=== PATIENT | male | born 1945 | race Caucasian/White ===

== ENCOUNTER 2022-10-04 13:55 | Inpatient (IN) | payer OTHER, SELFPAY ==
[2022-10-04] VITALS (43 sets, daily range): BP systolic 87–175; BP diastolic 52–103; PULSE 82–192; RESP 12–38; TEMP 36.1–38; O2SAT 91–98; BMI 22.8
--- NOTE | 2022-10-04 13:58 | DI.RAD.S_ITS ---
PROCEDURE: XR CHEST 1V INDICATIONS: eval for PNA TECHNIQUE: One view of the chest was acquired. COMPARISON: None. FINDINGS: Surgical changes and devices: None. Lungs and pleura: Right lower lobe infiltrate consistent with pneumonia. No pneumothorax or pleural effusion. Mediastinum: Mediastinal contours appear normal. Heart size is normal. Bones and chest wall: No suspicious bony lesions. Overlying soft tissues appear unremarkable. IMPRESSION: Right lower lobe infiltrate consistent with pneumonia. Dictated by: Dariel Guaman M.D. on 10/04/2022 at 13:26 Approved by: Dariel Guaman M.D. on 10/04/2022 at 13:27
--- NOTE | 2022-10-04 13:59 | ED_ITS ---
HPI - General Adult General Chief complaint: Upper Respiratory Symptoms Stated complaint: diff breathing Time Seen by Provider: 10/04/22 13:56 Source: patient, family () and EMS Mode of arrival: EMS Limitations: no limitations History of Present Illness HPI narrative: Patient is a 77-year-old male. History of COPD. Not on home oxygen. Brought in by EMS for worsening shortness of breath and cough over the past week. Patient did receive a DuoNeb prior to arrival by EMS which he states did help his symptoms quite a bit. He states he has had a productive cough. No chest pain. No shortness of breath. No lower extremity swelling. No nausea or vomiting. Has had subjective fevers. When his symptoms worsened this morning EMS was called. They found his oxygen saturations in the high 70s. Patient is not altered. Related Data Home Medications Medication Instructions Recorded Confirmed amlodipine 5 mg tablet 5 mg PO BID 10/04/22 10/04/22 brimonidine 0.2 % eye drops 1 drp ophthalmic (eye) BID 10/04/22 10/04/22 clopidogrel 75 mg tablet 75 mg PO DAILY 10/04/22 10/04/22 dorzolamide 2 % eye drops 1 drp ophthalmic (eye) BID 10/04/22 10/04/22 ipratropium 20 mcg-albuterol 100 1 puff inhalation TID 10/04/22 10/04/22 mcg/actuation mist for inhalation (Combivent Respimat) latanoprost 0.005 % eye drops 1 drp ophthalmic (eye) QPM 10/04/22 10/04/22 losartan 50 mg tablet 50 mg PO BID 10/04/22 10/04/22 Allergies Allergy/AdvReac Type Severity Reaction Status Date / Time tetracycline Allergy Severe Blister Verified 10/04/22 14:05 Review of Systems Constitutional Constitutional: Reports system reviewed and no additional complaints, except as documented Cardiovascular Cardiovascular: Reports system reviewed and no additional complaints, except as documented Respiratory Respiratory: Reports system reviewed and no additional complaints, except as documented Gastrointestinal Gastrointestinal: Reports system reviewed and no additional complaints, except as documented Musculoskeletal Musculoskeletal: Reports system reviewed and no additional complaints, except as documented Integumentary/Breasts Skin/Breast: Reports system reviewed and no additional complaints, except as documented Neurologic Neurologic: Reports system reviewed and no additional complaints, except as documented Hematologic/Lymphatic On Anticoagulants: No Patient History Medical History COPD (chronic obstructive pulmonary disease) Social History Smoking Status: Former smoker Exam Initial Vital Signs Initial Vital Signs: Vital Signs Blood Pressure 120/72 10/04/22 13:56 Const General: cooperative, acute distress and ill appearing HENMT Head: normal to inspection Resp Effort & Inspection: labored, respiratory distress and tachypneic Auscultation: rales, rhonchi and wheezes Cardio Rate: tachycardic Rhythm: abnormal rhythm GI Inspection: normal to inspection Skin General: no rashes or lesions noted Neuro General: patient alert, patient awake, patient oriented x3 and moves all extremities Extrem General: No edema Psych Appearance: grossly normal Scores GCS [place] coma scale eye opening: Spontaneous [place] coma scale verbal response: Orientated [place] coma scale motor response: Obey commands [place] coma scale total score: 15 Course Orders Ordered: ED Orders 10/04/22 13:58 XR chest 1V Stat EKG-12 Lead Stat RT Consult Eval and Treat Now 10/04/22 14:00 Complete Blood Count AUTO DIFF Stat Comprehensive Metabolic Panel Stat Lactate (Lactic Acid) Stat Lipase Stat Magnesium Stat NT-proBNP (BNP-Adult 18+) Stat Procalcitonin Stat Respiratory Panel (Film Array) Stat Troponin & CK Cardiac Panel Stat 10/04/22 14:03 Blood Culture Stat DILTIAZEM (Diltiazem 125 Mg/125 Ml-D5w) 125 mg in 125 mls @ 5 mls/hr IV TITRATE GABI; Protocol Last Titration: 10/04/22 15:51 Dose: 0 mg/hr, 0 mls/hr Documented By: Admin: 10/04/22 14:29 Dose: 5 mg/hr, 5 mls/hr Documented By: EMILIA(2) Discontinued Medications Albuterol/Ipratropium (Albuterol/Ipratropium 3 Ml Ampul) 3 ml INH NOW ONE Stop: 10/04/22 13:57 Last Admin: 10/04/22 14:09 Dose: 3 ml Documented By: CRISTINA Diltiazem HCl (Diltiazem 5 Mg/Ml Sdv) 10 mg IV NOW ONE Stop: 10/04/22 14:09 Last Admin: 10/04/22 14:14 Dose: 10 mg Documented By: RLS(2) Hydromorphone HCl (Hydromorphone 0.5 Mg Inj) 1 mg IV NOW ONE Stop: 10/04/22 15:50 Last Admin: 10/04/22 15:55 Dose: Not Given Documented By: RLS(2) Levofloxacin (Levaquin) 750 mg in 150 mls @ 100 mls/hr IV NOW ONE Stop: 10/04/22 15:48 Last Infusion: 10/04/22 16:03 Dose: 0 mls/hr Documented By: Admin: 10/04/22 14:28 Dose: 100 mls/hr Documented By: RLS(2) Methylprednisolone (Methylprednisolone 125 Mg/2 Ml Vial) 125 mg IV NOW ONE Stop: 10/04/22 13:57 Last Admin: 10/04/22 14:14 Dose: 125 mg Documented By: RLS(2) Vital Signs Vital signs: Vital Signs - 8 hr 10/04/22 14:05 10/04/22 14:12 10/04/22 14:14 Temperature 100.4 F H Pulse Rate 185 H 184 H 192 H Respiratory Rate 37 H 32 H Blood Pressure 120/72 Pulse Oximetry 91 92 Oxygen Delivery Method Nasal Cannula Nasal Cannula Oxygen Flow Rate 2 2 Fraction of Inspired Oxygen 28 10/04/22 13:56 10/04/22 13:57 10/04/22 14:00 Temperature Pulse Rate 185 H 186 H Respiratory Rate 35 H 38 H Blood Pressure 120/72 Pulse Oximetry 92 91 Oxygen Delivery Method Oxygen Flow Rate Fraction of Inspired Oxygen 10/04/22 14:01 10/04/22 14:01 10/04/22 14:20 Temperature Pulse Rate 186 H Respiratory Rate 36 H Blood Pressure 175/103 H 101/58 L Pulse Oximetry 92 Oxygen Delivery Method Oxygen Flow Rate Fraction of Inspired Oxygen 10/04/22 14:20 10/04/22 14:30 10/04/22 14:30 Temperature Pulse Rate 180 H 168 H Respiratory Rate 35 H 36 H Blood Pressure 96/65 Pulse Oximetry 91 91 Oxygen Delivery Method Oxygen Flow Rate Fraction of Inspired Oxygen 10/04/22 14:40 10/04/22 14:40 10/04/22 14:43 Temperature Pulse Rate 164 H 174 H Respiratory Rate 32 H 31 H Blood Pressure 91/57 L Pulse Oximetry 92 92 Oxygen Delivery Method Nasal Cannula Oxygen Flow Rate 2 Fraction of Inspired Oxygen 10/04/22 14:43 10/04/22 14:45 10/04/22 14:45 Temperature Pulse Rate 106 H Respiratory Rate 30 H Blood Pressure 87/58 L 96/71 Pulse Oximetry 95 Oxygen Delivery Method Nasal Cannula Oxygen Flow Rate 2 Fraction of Inspired Oxygen 10/04/22 14:50 10/04/22 14:50 10/04/22 14:57 Temperature Pulse Rate 102 H 104 H Respiratory Rate 27 H 28 H Blood Pressure 87/57 L Pulse Oximetry 96 96 Oxygen Delivery Method Oxygen Flow Rate Fraction of Inspired Oxygen 10/04/22 14:57 10/04/22 15:00 10/04/22 15:00 Temperature Pulse Rate 103 H Respiratory Rate 24 Blood Pressure 91/57 L 93/60 Pulse Oximetry 95 Oxygen Delivery Method Oxygen Flow Rate Fraction of Inspired Oxygen 10/04/22 15:10 10/04/22 15:10 10/04/22 15:20 Temperature Pulse Rate 100 H Respiratory Rate 20 Blood Pressure 99/56 L 89/52 L Pulse Oximetry 97 Oxygen Delivery Method Oxygen Flow Rate Fraction of Inspired Oxygen 10/04/22 15:20 10/04/22 15:26 10/04/22 15:26 Temperature Pulse Rate 98 H 97 H Respiratory Rate 20 25 H Blood Pressure 92/55 L Pulse Oximetry 96 95 Oxygen Delivery Method Oxygen Flow Rate Fraction of Inspired Oxygen 10/04/22 15:30 10/04/22 15:30 10/04/22 15:40 Temperature Pulse Rate 99 H Respiratory Rate 25 H Blood Pressure 103/62 94/60 Pulse Oximetry 95 Oxygen Delivery Method Oxygen Flow Rate Fraction of Inspired Oxygen 10/04/22 15:40 Temperature Pulse Rate 98 H Respiratory Rate 19 Blood Pressure Pulse Oximetry 95 Oxygen Delivery Method Oxygen Flow Rate Fraction of Inspired Oxygen Medical Decision Making Medical Records Medical records reviewed: Yes I reviewed the patient's medical records. Lab Data Lab results reviewed: Yes I reviewed the patient's lab results. 10/04/22 14:00 10/04/22 14:00 Labs: Lab Results 10/04/22 10/04/22 10/04/22 Range/Units 14:00 14:00 14:00 WBC 16.4 H (4.5-11.0) X10^3/uL RBC 4.53 (4.5-5.9) X10^6/uL Hgb 13.7 (13.5-17.5) g/dL Hct 41.3 (41-53) % MCV 91.1 (80-100) fL MCH 30.3 (26-34) PG MCHC 33.3 (30-36) % RDW 13.4 (11.6-14.8) % Plt Count 223 (150-400) X10^3/uL Neut % (Auto) 88.3 H (50-75) % Lymph % (Auto) 6.9 L (25-40) % [place] % (Auto) 3.9 (3-14) % Eos % (Auto) 0.0 L (2-4) % Baso % (Auto) 0.9 (0-2) % Neut # (Auto) 05891 H (0941-8493) /uL Lymph # (Auto) 1100 (4859-2840) /uL [place] # (Auto) 600 (0-900) /uL Eos # (Auto) 0 (0-450) /uL Baso # (Auto) 200 H (0-100) /uL Sodium 137 (137-145) mmol/L Potassium 3.5 (3.4-5.1) mmol/L Chloride 103 (98-107) mmol/L Carbon Dioxide 19 L (22-32) mmol/L BUN 22 H (9-20) mg/dL Creatinine 1.25 (0.66-1.25) mg/dL Estimated GFR 59 L (>60) mL/min BUN/Creatinine Ratio 17.6 (6-22) Glucose 108 (80-110) mg/dL Lactate 2.3 H (0.7-2.1) mmol/L Calcium 8.7 (8.4-10.2) mg/dL Magnesium 1.9 (1.6-2.3) mg/dL Total Bilirubin 1.9 H (0.2-1.3) mg/dL AST 73 H (17-59) IU/L ALT 56 H (<50) IU/L Alkaline Phosphatase 116 (38-126) U/L Total Creatine Kinase (55-170) U/L CK-MB (CK-2) (<2.37) ng/mL CK-MB (CK-2) Rel Index (1.5-5.0) % Troponin I (0.01-0.034) ng/mL NT-Pro-B Natriuret Pep 4730 H (<450) pg/mL Total Protein 7.2 (6.3-8.2) g/dL Albumin 3.5 (3.5-5.0) g/dL Globulin 3.7 (1.7-4.1) g/dL Albumin/Globulin Ratio 0.9 L (1.0-2.8) Lipase 19 L (23-300) U/L Procalcitonin 6.41 H (<0.5) ng/mL Chlamy pneumoniae PCR (Not Detect) Adenovirus (PCR) (Not Detect) B. pertussis DNA (PCR) (Not Detecte) B.parapertussis DNA PCR (Not Detecte) Coronavirus OC43 (PCR) (Not Detect) Coronavirus HKU1 (PCR) (Not Detect) Coronavirus 229E (PCR) (Not Detect) SARS-CoV-2 (PCR) (Not Detecte) Coronavirus NL63 (PCR) (Not Detect) Human Metapneumovir PCR (Not Detect) Influenza Type A (PCR) (Not Detect) Influenza Type B (PCR) (Not Detect) M. pneumoniae (PCR) (Not Detect) Parainfluenza 1 (PCR) (Not Detect) Parainfluenza 2 (PCR) (Not Detect) Parainfluenza 3 (PCR) (Not Detect) Parainfluenza 4 (PCR) (Not Detect) RSV (PCR) (Not Detect) Entero/Rhino (PCR) (Not Detect) 10/04/22 10/04/22 Range/Units 14:00 14:00 WBC (4.5-11.0) X10^3/uL RBC (4.5-5.9) X10^6/uL Hgb (13.5-17.5) g/dL Hct (41-53) % MCV (80-100) fL MCH (26-34) PG MCHC (30-36) % RDW (11.6-14.8) % Plt Count (150-400) X10^3/uL Neut % (Auto) (50-75) % Lymph % (Auto) (25-40) % [place] % (Auto) (3-14) % Eos % (Auto) (2-4) % Baso % (Auto) (0-2) % Neut # (Auto) (4309-7909) /uL Lymph # (Auto) (6174-2928) /uL [place] # (Auto) (0-900) /uL Eos # (Auto) (0-450) /uL Baso # (Auto) (0-100) /uL Sodium (137-145) mmol/L Potassium (3.4-5.1) mmol/L Chloride (98-107) mmol/L Carbon Dioxide (22-32) mmol/L BUN (9-20) mg/dL Creatinine (0.66-1.25) mg/dL Estimated GFR (>60) mL/min BUN/Creatinine Ratio (6-22) Glucose (80-110) mg/dL Lactate (0.7-2.1) mmol/L Calcium (8.4-10.2) mg/dL Magnesium (1.6-2.3) mg/dL Total Bilirubin (0.2-1.3) mg/dL AST (17-59) IU/L ALT (<50) IU/L Alkaline Phosphatase (38-126) U/L Total Creatine Kinase 200 H (55-170) U/L CK-MB (CK-2) 2.95 H (<2.37) ng/mL CK-MB (CK-2) Rel Index 1.5 (1.5-5.0) % Troponin I 0.057 H (0.01-0.034) ng/mL NT-Pro-B Natriuret Pep (<450) pg/mL Total Protein (6.3-8.2) g/dL Albumin (3.5-5.0) g/dL Globulin (1.7-4.1) g/dL Albumin/Globulin Ratio (1.0-2.8) Lipase (23-300) U/L Procalcitonin (<0.5) ng/mL Chlamy pneumoniae PCR Not detected (Not Detect) Adenovirus (PCR) Not detected (Not Detect) B. pertussis DNA (PCR) Not detected (Not Detecte) B.parapertussis DNA PCR Not detected (Not Detecte) Coronavirus OC43 (PCR) Not detected (Not Detect) Coronavirus HKU1 (PCR) Not detected (Not Detect) Coronavirus 229E (PCR) Not detected (Not Detect) SARS-CoV-2 (PCR) Not detected (Not Detecte) Coronavirus NL63 (PCR) Not detected (Not Detect) Human Metapneumovir PCR Detected H (Not Detect) Influenza Type A (PCR) Not detected (Not Detect) Influenza Type B (PCR) Not detected (Not Detect) M. pneumoniae (PCR) Not detected (Not Detect) Parainfluenza 1 (PCR) Not detected (Not Detect) Parainfluenza 2 (PCR) Not detected (Not Detect) Parainfluenza 3 (PCR) Not detected (Not Detect) Parainfluenza 4 (PCR) Not detected (Not Detect) RSV (PCR) Not detected (Not Detect) Entero/Rhino (PCR) Not detected (Not Detect) Imaging Data Chest x-ray: Radiologist's Impression: PROCEDURE:? XR CHEST 1V ? INDICATIONS:? eval for PNA ? TECHNIQUE:? One view of the chest was acquired.? ? COMPARISON:? None. ? FINDINGS:? ? Surgical changes and devices:? None.? ? Lungs and pleura:? Right lower lobe infiltrate consistent with pneumonia.? No pneumothorax or pleural effusion. ? Mediastinum:? Mediastinal contours appear normal.? Heart size is normal.? ? Bones and chest wall:? No suspicious bony lesions.? Overlying soft tissues appear unremarkable.? ? IMPRESSION:? Right lower lobe infiltrate consistent with pneumonia. ECG Data Interpretation: Atrial fibrillation Ventricular rate 178 Normal axis Normal QRS Nonspecific ST T wave changes Sinus rhythm Ventricular rate 97 Normal axis Normal QRS Normal QTC No ST T wave changes MDM Narrative Medical decision making narrative: Patient has had upper respiratory tract infection like symptoms for the past week with a history of COPD. Was hypoxic by EMS. Improved somewhat with a DuoNeb however still having diffuse wheezing and respiratory distress upon arrival. He received a 2nd DuoNeb. Patient was also tachycardic and irregular. It was AFib when the EKG. He is no history of AFib. Given his history of respiratory issues he was given Cardizem which did improve his heart rate somewhat. He was then started on a Cardizem drip which converted him back to sinus rhythm. Afterwards he stated that he did feel much better. His labs are consistent with an infection. He has a right lower lobe infiltrate which was concerning for an infection. He does have human metapneumovirus however his x- ray does not necessarily correlate with this. He was given Levaquin for treatment of pneumonia. Patient's blood pressure was in the upper 80s however he stated that he at baseline would run in the low 90s to mid 90s systolic. Patient is mentating normal. Discussed the case with Dr. Mora with Internal Medicine who will admit the patient for further evaluation treatment. Discussed need for admission with the patient he expressed understanding and agreement as well. Gentle hydration given his presenting symptoms however given his re spiratory status did not want to fluid overload. Critical Care Time Critical Care Time Critical Care Time: Yes Total Critical Care Time: 40 Attestation: The high probability of a clinically significant, sudden or life threatening deterioration of the [cardiovascular, respiratory] system(s) required my full and direct attention, intervention and personal management. The aggregate critical care time was [40] minutes. This time is in addition to time spent performing reported procedures but includes the following: [x] Data Review and interpretation x[] Patient assessment and monitoring of vital signs [x] Documentation [x] Medication orders and management Discharge Plan Departure Patient Disposition: Admitted As Inpatient Clinical Impression: Pneumonia, COPD (chronic obstructive pulmonary disease), Atrial fibrillation with RVR, Respiratory distress, Hypoxia Admit Date/Time: 10/04/22 15:47 Admit Provider: Lucero Mora
[2022-10-04] MEDS: ALBUTEROL/IPRATROPIUM 3 ML AMPUL INH (14:09)
[2022-10-04] MEDS: dilTIAZem 5 MG/ML SDV 10 MG IV (14:14)
[2022-10-04] MEDS: methylPREDNISolone 125 MG/2 ML VIAL IV (14:14)
[2022-10-04 14:22] LABS: Add Manual Diff / Slide Review NO; Basophils Absolute Auto 200 /uL (0-100); Basophils Percent Auto 0.9 % (0-2); Eosinophils Absolute Auto 0 /uL (0-450); Hematocrit 41.3 % (41-53); Hemoglobin 13.7 g/dL (13.5-17.5); Lymphocytes Absolute Auto 1100 /uL (1100-4500); Lymphocytes Percent Auto 6.9 % (25-40); Mean Corpuscular HGB Conc 33.3 % (30-36); Mean Corpuscular Hemoglobin 30.3 PG (26-34); Mean Corpuscular Volume 91.1 fL (80-100); Monocytes Absolute Auto 600 /uL (0-900); Monocytes Percent Auto 3.9 % (3-14); Neutrophils Absolute Auto 14500 /uL (1500-7000); Neutrophils Percent Auto 88.3 % (50-75); Platelet Count 223 X10^3/uL (150-400); Red Blood Cell Count 4.53 X10^6/uL (4.5-5.9); Red Cell Distribution Width 13.4 % (11.6-14.8); White Blood Cell Count 16.4 X10^3/uL (4.5-11.0)
[2022-10-04] MEDS: levoFLOXacin 750 MG/150 ML PIGGYBACK 100 MG IV (14:28)
[2022-10-04 14:29] LABS: Alanine Aminotransferase 56 IU/L (<50); Albumin 3.5 g/dL (3.5-5.0); Albumin Globulin Ratio 0.9 (1.0-2.8); Alkaline Phosphatase 116 U/L (38-126); Aspartate Aminotransferase 73 IU/L (17-59); BUN Creatinine Ratio 17.6 (6-22); Bilirubin Total 1.9 mg/dL (0.2-1.3); Blood Urea Nitrogen 22 mg/dL (9-20); Calcium 8.7 mg/dL (8.4-10.2); Carbon Dioxide 19 mmol/L (22-32); Chloride 103 mmol/L (98-107); Creatine Kinase 200 U/L (55-170); Estimated Glomerular Filt Rate 59 mL/min (>60); Globulin 3.7 g/dL (1.7-4.1); Glucose 108 mg/dL (80-110); HEMOLYSIS < 15 (0-50); Lipase 19 U/L (23-300); Magnesium 1.9 mg/dL (1.6-2.3); Potassium 3.5 mmol/L (3.4-5.1); Sodium 137 mmol/L (137-145); Total Protein 7.2 g/dL (6.3-8.2)
[2022-10-04] MEDS: DILTIAZEM 125 MG/125 ML PIGGYBACK IV (14:29)
[2022-10-04 14:30] LABS: Lactate (Lactic Acid) 2.3 mmol/L (0.7-2.1)
[2022-10-04 14:38] LABS: NT-proBNP (BNP-Adult 18+) 4730 pg/mL (<450)
[2022-10-04 14:41] LABS: Troponin I 0.057 ng/mL (0.01-0.034)
[2022-10-04 14:45] LABS: CKMB % Relative Index 1.5 % (1.5-5.0); Creatine Kinase MB 2.95 ng/mL (<2.37); Procalcitonin 6.41 ng/mL (<0.5)
--- NOTE | 2022-10-04 14:59 | PC.NURSE ---
Dr. Scott aware of conversion to sinus tachycardia. will wait a few minutes and get a repeat ekg
[2022-10-04 15:02] LABS: Adenovirus Not Detected (Not Detect); B. parapertussis Not Detected (Not Detecte); Bordetella pertussis Not Detected (Not Detecte); Chlamydophila pneumoniae Not Detected (Not Detect); Coronavirus 229E Not Detected (Not Detect); Coronavirus HKU1 Not Detected (Not Detect); Coronavirus NL 63 Not Detected (Not Detect); Coronavirus OC43 Not Detected (Not Detect); Human Metapneumovirus Detected (Not Detect); Human Rhinovirus/Enterovirus Not Detected (Not Detect); Influenza A Not Detected (Not Detect); Influenza B Not Detected (Not Detect); Mycoplasma pneumoniae Not Detected (Not Detect); Parainfluenza Virus 1 Not Detected (Not Detect); Parainfluenza Virus 2 Not Detected (Not Detect); Parainfluenza Virus 3 Not Detected (Not Detect); Parainfluenza Virus 4 Not Detected (Not Detect); Respiratory Syncytial Virus Not Detected (Not Detect); SARS- CoV-2 Not Detected (Not Detecte)
[2022-10-04 16:09] LABS: Reflexed Lactate in 2 Hours Y
[2022-10-04 16:41] LABS: Lactate 2HR (Lactic Acid Rflx) 1.8 mmol/L (0.7-2.1)
--- NOTE | 2022-10-04 18:00 | PM.HP.1 ---
History of Present Illness History of Present Illness Chief complaint: diff breathing Narrative: 77-year-old male with COPD, coronary artery disease status post drug-eluting stents, obstructive sleep apnea, CKD stage 3, hypertension, hyperlipidemia and known stable infrarenal abdominal aortic aneurysm presented to the emergency today with worsening shortness of breath and cough over the prior week. Initial O2 sats were noted to be in the 70s via EMS. Received a nebulizer in the ambulance on route to the hospital. He received an additional nebulizer treatment after arrival in the ER. Initial vital signs revealed a temp of 100.4?, heart rate in the 180s, respiratory rate in the 30s, BP 120/72, O2 sats 91% on 2 liters/minute. He received diltiazem 10 mg IV and subsequently was placed on a diltiazem infusion. Shortly thereafter though he converted back to a sinus rhythm. Labs revealed a white blood cell count of 16.4, hemoglobin 13.7, hematocrit 41.3, platelets 223. Chemistry panel revealed a sodium of 137, potassium 3.5, chloride 103, bicarb 19, BUN 22, creatinine 1.25, Cl 108. Lactate was initially 2.3 but in follow-up normalized at 1.8. Bilirubin was elevated at 1.9, AST 73, ALT 56, CK 200, CK-MB 2.95, troponin 0.057, BNP 4730. Procalcitonin was 6.41. Respiratory viral panel was done and human metapneumovirus was detected. Chest x-ray revealed right lower lobe infiltrate consistent with pneumonia. Patient received Levaquin 750 mg IV, Solu-Medrol 125 mg IV, as well as a single dose of Dilaudid 1 mg IV. After he converted back to a sinus rhythm, he was noted have a heart rate of 102-106, soft blood pressures at 87/57 to 96/71. While in the emergency department, blood pressures have gradually improved up to the low 100 systolic. Patient tells me he became ill approximately 1 week ago. Notes he was having cough productive of dark ?black? sputum. He had been feeling worse over the past couple of days. He states he delayed coming to the emergency department as his was worried about the cost. He states today he ?knew he was in trouble? and called EMS. He states he last ate food approximately 5 days ago. He notes he developed nausea but no vomiting. He would also had problems every time he ate he had diarrhea. He states his oral intake has been reduced and his urine output has been reduced as well. He states at baseline he does not use oxygen. He typically is able to get around as he needs to with some shortness of breath but it is not terribly limiting for him. He notes his longer drives and he drives her everywhere she needs to go and he is able to perform his IADLs. He states he was unaware he was febrile until coming to the emergency department. He also states he was unaware of having a fast heart rhythm. He states he simply knew he was feeling very poorly. He denies any chest pain. Currently he continues to have some shortness of breath. Patient History Medical History COPD (chronic obstructive pulmonary disease) Comment: Past medical history: Hypertension Hyperlipidemia Coronary artery disease status post drug-eluting stent to the RCA in 2012 with in stent restenosis, and NSTEMI resulting in drug-eluting stent to the mid RCA, on dual antiplatelet therapy Cardiac murmur echocardiogram reveals LVEF of 60%, diastolic dysfunction noted, mildly dilated left atrium Extensive exposure to agent orange while in [place] COPD (bilateral severe emphysema seen on imaging) History of tobacco dependence-Greater than 50 pack year smoking history, quit in 1999 obstructive sleep apnea Anemia GERD Depression Claustrophobia Infrarenal abdominal aortic aneurysm measuring 4.5 x 4.[address] most recent CT in 2021 CKD stage 3 with baseline creatinine of 1.3, GFR of around 53 Left renal angiomyolipoma Hepatic steatosis seen on previous imaging December 2021 Glaucoma Family & Social History Social History: Family history: Patient reports his father had significant coronary disease but he attributes that to his father's heavy drinking Safety & Behavioral: Feels Safe in Current Yes Environment Tobacco & Substance use: Smoking Status Former smoker Substance Use Type does not use Meds Home Medications and Allergies Home Medications Medication Instructions Recorded Confirmed Type amlodipine 5 mg tablet 5 mg PO BID 10/04/22 10/04/22 History brimonidine 0.2 % eye drops 1 drp ophthalmic (eye) BID 10/04/22 10/04/22 History clopidogrel 75 mg tablet 75 mg PO DAILY 10/04/22 10/04/22 History dorzolamide 2 % eye drops 1 drp ophthalmic (eye) BID 10/04/22 10/04/22 History ipratropium 20 mcg-albuterol 100 1 puff inhalation TID 10/04/22 10/04/22 History mcg/actuation mist for inhalation (Combivent Respimat) latanoprost 0.005 % eye drops 1 drp ophthalmic (eye) QPM 10/04/22 10/04/22 History losartan 50 mg tablet 50 mg PO BID 10/04/22 10/04/22 History Allergies Allergy/AdvReac Type Severity Reaction Status Date / Time tetracycline Allergy Severe Blister Verified 10/04/22 14:05 Review of Systems Review of Systems Narrative: All other systems were reviewed negative Exam Vital Signs (past 8 hours): - 10/04/22 14:05 10/04/22 14:12 10/04/22 14:14 Temperature 100.4 F H Pulse Rate 185 H 184 H 192 H Respiratory Rate 37 H 32 H Blood Pressure 120/72 Pulse Oximetry 91 92 Oxygen Delivery Method Nasal Cannula Nasal Cannula Oxygen Flow Rate 2 2 Fraction of Inspired Oxygen 28 10/04/22 13:56 10/04/22 13:57 10/04/22 14:00 Temperature Pulse Rate 185 H 186 H Respiratory Rate 35 H 38 H Blood Pressure 120/72 Pulse Oximetry 92 91 Oxygen Delivery Method Oxygen Flow Rate Fraction of Inspired Oxygen 10/04/22 14:01 10/04/22 14:01 10/04/22 14:20 Temperature Pulse Rate 186 H Respiratory Rate 36 H Blood Pressure 175/103 H 101/58 L Pulse Oximetry 92 Oxygen Delivery Method Oxygen Flow Rate Fraction of Inspired Oxygen 10/04/22 14:20 10/04/22 14:30 10/04/22 14:30 Temperature Pulse Rate 180 H 168 H Respiratory Rate 35 H 36 H Blood Pressure 96/65 Pulse Oximetry 91 91 Oxygen Delivery Method Oxygen Flow Rate Fraction of Inspired Oxygen 10/04/22 14:40 10/04/22 14:40 10/04/22 14:43 Temperature Pulse Rate 164 H 174 H Respiratory Rate 32 H 31 H Blood Pressure 91/57 L Pulse Oximetry 92 92 Oxygen Delivery Method Nasal Cannula Oxygen Flow Rate 2 Fraction of Inspired Oxygen 10/04/22 14:43 10/04/22 14:45 10/04/22 14:45 Temperature Pulse Rate 106 H Respiratory Rate 30 H Blood Pressure 87/58 L 96/71 Pulse Oximetry 95 Oxygen Delivery Method Nasal Cannula Oxygen Flow Rate 2 Fraction of Inspired Oxygen 10/04/22 14:50 10/04/22 14:50 10/04/22 14:57 Temperature Pulse Rate 102 H 104 H Respiratory Rate 27 H 28 H Blood Pressure 87/57 L Pulse Oximetry 96 96 Oxygen Delivery Method Oxygen Flow Rate Fraction of Inspired Oxygen 10/04/22 14:57 10/04/22 15:00 10/04/22 15:00 Temperature Pulse Rate 103 H Respiratory Rate 24 Blood Pressure 91/57 L 93/60 Pulse Oximetry 95 Oxygen Delivery Method Oxygen Flow Rate Fraction of Inspired Oxygen 10/04/22 15:10 10/04/22 15:10 10/04/22 15:20 Temperature Pulse Rate 100 H Respiratory Rate 20 Blood Pressure 99/56 L 89/52 L Pulse Oximetry 97 Oxygen Delivery Method Oxygen Flow Rate Fraction of Inspired Oxygen 10/04/22 15:20 10/04/22 15:26 10/04/22 15:26 Temperature Pulse Rate 98 H 97 H Respiratory Rate 20 25 H Blood Pressure 92/55 L Pulse Oximetry 96 95 Oxygen Delivery Method Oxygen Flow Rate Fraction of Inspired Oxygen 10/04/22 15:30 10/04/22 15:30 10/04/22 15:40 Temperature Pulse Rate 99 H Respiratory Rate 25 H Blood Pressure 103/62 94/60 Pulse Oximetry 95 Oxygen Delivery Method Oxygen Flow Rate Fraction of Inspired Oxygen 10/04/22 15:40 10/04/22 15:50 10/04/22 15:50 Temperature Pulse Rate 98 H 97 H Respiratory Rate 19 22 Blood Pressure 104/67 Pulse Oximetry 95 96 Oxygen Delivery Method Oxygen Flow Rate Fraction of Inspired Oxygen 10/04/22 16:00 10/04/22 16:00 10/04/22 16:10 Temperature Pulse Rate 99 H Respiratory Rate 19 Blood Pressure 98/64 102/68 Pulse Oximetry 95 Oxygen Delivery Method Oxygen Flow Rate Fraction of Inspired Oxygen 10/04/22 16:10 10/04/22 16:20 10/04/22 16:20 Temperature Pulse Rate 97 H 98 H Respiratory Rate 21 24 Blood Pressure 107/67 Pulse Oximetry 95 95 Oxygen Delivery Method Oxygen Flow Rate Fraction of Inspired Oxygen 10/04/22 16:30 10/04/22 16:30 10/04/22 16:40 Temperature Pulse Rate 97 H Respiratory Rate 20 Blood Pressure 112/69 105/65 Pulse Oximetry 95 Oxygen Delivery Method High Flow Nasal Cannula Oxygen Flow Rate 2 Fraction of Inspired Oxygen 10/04/22 16:40 10/04/22 16:50 10/04/22 16:50 Temperature Pulse Rate 96 H 97 H Respiratory Rate 22 23 Blood Pressure 103/66 Pulse Oximetry 95 95 Oxygen Delivery Method Nasal Cannula Oxygen Flow Rate Fraction of Inspired Oxygen 10/04/22 17:00 10/04/22 17:01 10/04/22 17:01 Temperature Pulse Rate 94 H 94 H Respiratory Rate 18 17 Blood Pressure 112/66 Pulse Oximetry 95 94 Oxygen Delivery Method Oxygen Flow Rate Fraction of Inspired Oxygen 10/04/22 17:55 Temperature Pulse Rate Respiratory Rate Blood Pressure Pulse Oximetry 98 Oxygen Delivery Method Nasal Cannula Oxygen Flow Rate 2 Fraction of Inspired Oxygen Fraction of Inspired Oxygen 28 SaO2/FiO2 Ratio 328 Oxygen Delivery Method Nasal Cannula Oxygen Flow Rate 2 Narrative Exam Narrative: GEN: Elderly male, quite dyspneic at rest, conversationally dyspneic, Alert and oriented x3, occasional wet sounding cough HEENT: Normocephalic, face symmetric, pupils equal round reactive to light, extraocular movements intact, sclerae anicteric, conjunctiva clear, nares patent, oropharynx reveals an intact soft and hard palate with moist mucous membranes, dentition is fair NECK: Supple, no lymphadenopathy, thyroid without enlargement or nodularity, carotids no bruits CHEST: Tachypneic, mild supraclavicular retractions, Respiratory excursions symmetric, diffuse rhonchi bilaterally, no wheezes heard, diffusely diminished CV: Mildly tachycardic with regular rhythm, no murmurs, rubs, gallops, PMI nondisplaced ABD: Soft, nontender, nondistended, bowel sounds present in all 4 quadrants, no organomegaly or masses appreciated EXTR: Warm, well perfused, no clubbing/cyanosis/edema SKIN: Warm and dry, without rash NEURO: Alert and oriented x3, grossly intact PSYCH: Mood and affect is within normal limits, judgment and insight are appropriate Objective Labs 10/04/22 14:00 10/04/22 14:00 Labs: Laboratory Results - last 24 hr 10/04/22 10/04/22 10/04/22 14:00 14:00 14:00 WBC 16.4 H RBC 4.53 Hgb 13.7 Hct 41.3 MCV 91.1 MCH 30.3 MCHC 33.3 RDW 13.4 Plt Count 223 Neut % (Auto) 88.3 H Lymph % (Auto) 6.9 L [place] % (Auto) 3.9 Eos % (Auto) 0.0 L Baso % (Auto) 0.9 Neut # (Auto) 14185 H Lymph # (Auto) 1100 [place] # (Auto) 600 Eos # (Auto) 0 Baso # (Auto) 200 H Sodium 137 Potassium 3.5 Chloride 103 Carbon Dioxide 19 L BUN 22 H Creatinine 1.25 Estimated GFR 59 L BUN/Creatinine Ratio 17.6 Glucose 108 Lactate 2.3 H Calcium 8.7 Magnesium 1.9 Total Bilirubin 1.9 H AST 73 H ALT 56 H Alkaline Phosphatase 116 Total Creatine Kinase CK-MB (CK-2) CK-MB (CK-2) Rel Index Troponin I NT-Pro-B Natriuret Pep 4730 H Total Protein 7.2 Albumin 3.5 Globulin 3.7 Albumin/Globulin Ratio 0.9 L Lipase 19 L Procalcitonin 6.41 H Chlamy pneumoniae PCR Adenovirus (PCR) B. pertussis DNA (PCR) B.parapertussis DNA PCR Coronavirus OC43 (PCR) Coronavirus HKU1 (PCR) Coronavirus 229E (PCR) SARS-CoV-2 (PCR) Coronavirus NL63 (PCR) Human Metapneumovir PCR Influenza Type A (PCR) Influenza Type B (PCR) M. pneumoniae (PCR) Parainfluenza 1 (PCR) Parainfluenza 2 (PCR) Parainfluenza 3 (PCR) Parainfluenza 4 (PCR) RSV (PCR) Entero/Rhino (PCR) 10/04/22 10/04/22 10/04/22 14:00 14:00 15:25 WBC RBC Hgb Hct MCV MCH MCHC RDW Plt Count Neut % (Auto) Lymph % (Auto) [place] % (Auto) Eos % (Auto) Baso % (Auto) Neut # (Auto) Lymph # (Auto) [place] # (Auto) Eos # (Auto) Baso # (Auto) Sodium Potassium Chloride Carbon Dioxide BUN Creatinine Estimated GFR BUN/Creatinine Ratio Glucose Lactate 1.8 Calcium Magnesium Total Bilirubin AST ALT Alkaline Phosphatase Total Creatine Kinase 200 H CK-MB (CK-2) 2.95 H CK-MB (CK-2) Rel Index 1.5 Troponin I 0.057 H NT-Pro-B Natriuret Pep Total Protein Albumin Globulin Albumin/Globulin Ratio Lipase Procalcitonin Chlamy pneumoniae PCR Not detected Adenovirus (PCR) Not detected B. pertussis DNA (PCR) Not detected B.parapertussis DNA PCR Not detected Coronavirus OC43 (PCR) Not detected Coronavirus HKU1 (PCR) Not detected Coronavirus 229E (PCR) Not detected SARS-CoV-2 (PCR) Not detected Coronavirus NL63 (PCR) Not detected Human Metapneumovir PCR Detected H Influenza Type A (PCR) Not detected Influenza Type B (PCR) Not detected M. pneumoniae (PCR) Not detected Parainfluenza 1 (PCR) Not detected Parainfluenza 2 (PCR) Not detected Parainfluenza 3 (PCR) Not detected Parainfluenza 4 (PCR) Not detected RSV (PCR) Not detected Entero/Rhino (PCR) Not detected Assessment & Plan Assessment & Plan narrative: 1. Acute hypoxic respiratory failure Patient presented with room air saturations in the 70s. He subsequently improved with nebulizer treatments and supplemental oxygen. He is now stable on 2 L of oxygen with saturations in the high 90s. Etiology is felt to be combination of pneumonia, known severe COPD and atrial fib with RVR. He was initiated on IV Levaquin. Will transition to Rocephin and azithromycin as he likely has a community-acquired pneumonia. With adequate rate control and converting back to sinus rhythm, he likely does not have any further contributor secondary to his arrhythmia. However, BNP was elevated, likely reflective of poor cardiac function when his heart rate was in the 180 range. Plan to continue nebulizer treatments. 2. Right lower lobe pneumonia and positive metapneumovirus Likely he had metapneumovirus initially and now has sustained a superimposed right lower lobe bacterial community-acquired pneumonia. Procalcitonin is elevated, white blood cell count is also elevated and he has low-grade fevers. Will place on Rocephin and azithromycin. No specific treatment for metapneumovirus accept for supportive care. Continue nebulizer treatments. 3. COPD Although he is not wheezing, he is tachypneic and appears to have some component of COPD exacerbation. Will place on Solu-Medrol. As noted, continue nebulizer treatments. Will add budesonide nebs as well. 4. Coronary artery disease Patient has had drug-eluting stents in an NSTEMI as recently as December of 2021. He does have a mildly elevated troponin on admission, which could be demand ischemia related to initial elevated heart rates. However given his history of extensive coronary disease, will obtain follow-up troponins. His initial EKG revealed AFib with RVR. After converting to sinus rhythm follow-up EKG was obtained which revealed no ischemic changes. This is certainly reassuring. Await follow-up troponin levels. Continue his usual outpatient medications. It appears he takes Plavix, amlodipine, and losartan. Suspect no beta-cherelle in the setting of his severe COPD. He states he does believe he takes a baby aspirin daily. He does not appear to be on a statin therapy. Unclear why. 5. CKD 3 Creatinine on admission is 1.25. GFR is 59. Baseline creatinine is 1.3. This appears to be baseline. 6. Hypertension Typically on amlodipine and losartan on an outpatient basis. These have been held secondary to some hypotension here. 7. Hyperlipidemia Not presently on statin therapy. Uncertain why. This should be explored further as he is feeling better. 8. Reported obstructive sleep apnea Not on CPAP/BiPAP. Unclear how long ago this diagnosis was made. 9. Transaminitis May be secondary to acute infection or hepatic congestion related to his AFib and decreased cardiac output versus his known hepatic steatosis. Will follow. 10. GERD Does not appear to be on a PPI at baseline. Will monitor for symptoms. 11. Infrarenal abdominal aortic aneurysm measuring 4.5 x 4.8 [address] on most recent CT in 2021 He is followed by vascular surgery and reports they have no plans for surgical intervention until the aneurism increases in size. 12. Glaucoma Patient reports he uses latanoprost once daily but the other 2 glaucoma medications twice daily. These will be ordered and confirmed. 13. Paroxysmal AFib with RVR Patient reports no awareness of when he was in rapid AFib. His CHADS2 Vasc score is 4, equivalent with a 4.8% stroke risk annually. He would like to initiate anticoagulation. Will start Eliquis. Code status Full per patient Prophylaxis Initiate Eliquis this evening. His drug-eluting stent most recently was placed in December of 2021. Could discontinue Plavix and continue aspirin alone to reduce risk of bleeding complications. Disposition Admit to acute care Time Spent With Patient Critical Care time: I spent a total of [] minutes of critical care time on this patient's care today; this time is exclusive of procedural time.
[2022-10-04] MEDS: SODIUM CHLORIDE 0.9% 1,000 ML 100 ML IV (19:39)
[2022-10-04] MEDS: BUDESONIDE 0.5 MG/2 ML NEB INH (19:41)
[2022-10-04] MEDS: ALBUTEROL 2.5 MG/3 ML NEB (ADULT) INH (19:41)
[2022-10-04] MEDS: cefTRIAXone 1,000 MG in SODIUM CHLORIDE 0.9% 100 ML 200 MG IV (19:45)
[2022-10-04 19:49] LABS: Troponin I 0.051 ng/mL (0.01-0.034)
[2022-10-04] MEDS: AZITHROMYCIN 500 MG in DEXTROSE 5% IN WATER 250 ML 250 MG IV (20:45)
[2022-10-04] MEDS: APIXABAN 5 MG TABLET PO (21:16)
[2022-10-05] VITALS (67 sets, daily range): BP systolic 70–117; BP diastolic 47–75; PULSE 64–106; RESP 11–37; TEMP 36.1–36.7; O2SAT 90–98
[2022-10-05 01:08] LABS: Troponin I 0.026 ng/mL (0.01-0.034)
[2022-10-05] MEDS: ALBUTEROL 2.5 MG/3 ML NEB (ADULT) INH (03:32)
--- NOTE | 2022-10-05 05:02 | PC.NURSE ---
Patient helped to bedside commode, with assist of 1 person. Becoming severely short of breath, coached with pursed lip breathing and slowly respiratory rate decreased. O2 sat stable throughout.
[2022-10-05 05:20] LABS: Add Manual Diff / Slide Review NO; Basophils Absolute Auto 0 /uL (0-100); Basophils Percent Auto 0.1 % (0-2); Eosinophils Absolute Auto 0 /uL (0-450); Hematocrit 35.3 % (41-53); Lymphocytes Absolute Auto 700 /uL (1100-4500); Lymphocytes Percent Auto 5.4 % (25-40); Mean Corpuscular HGB Conc 33.9 % (30-36); Mean Corpuscular Hemoglobin 30.3 PG (26-34); Mean Corpuscular Volume 89.2 fL (80-100); Monocytes Absolute Auto 300 /uL (0-900); Neutrophils Absolute Auto 12400 /uL (1500-7000); Neutrophils Percent Auto 92.5 % (50-75); Platelet Count 192 X10^3/uL (150-400); Red Blood Cell Count 3.95 X10^6/uL (4.5-5.9); Red Cell Distribution Width 13.7 % (11.6-14.8); White Blood Cell Count 13.4 X10^3/uL (4.5-11.0)
[2022-10-05 05:31] LABS: Alanine Aminotransferase 59 IU/L (<50); Albumin Globulin Ratio 0.9 (1.0-2.8); Alkaline Phosphatase 96 U/L (38-126); Aspartate Aminotransferase 56 IU/L (17-59); BUN Creatinine Ratio 27.1 (6-22); Bilirubin Total 0.9 mg/dL (0.2-1.3); Blood Urea Nitrogen 29 mg/dL (9-20); Carbon Dioxide 18 mmol/L (22-32); Chloride 105 mmol/L (98-107); Estimated Glomerular Filt Rate > 60 mL/min (>60); Globulin 3.2 g/dL (1.7-4.1); Glucose 182 mg/dL (80-110); HEMOLYSIS < 15 (0-50); Potassium 3.2 mmol/L (3.4-5.1); Sodium 134 mmol/L (137-145); Total Protein 6.2 g/dL (6.3-8.2)
[2022-10-05 05:33] LABS: Alanine Aminotransferase 58 IU/L (<50); Albumin 2.7 g/dL (3.5-5.0); Alkaline Phosphatase 100 U/L (38-126); Aspartate Aminotransferase 56 IU/L (17-59); Bilirubin Unconjugated 0.4 mg/dL (0.0-1.1); Globulin 2.7 g/dL (1.7-4.1); HEMOLYSIS < 15 (0-50); Total Protein 5.4 g/dL (6.3-8.2)
[2022-10-05] MEDS: BENZONATATE 100 MG CAPSULE PO (06:07)
[2022-10-05] MEDS: CODEINE/GUAIFENESIN LIQUID 5ML UDC 5 ML PO (06:07)
--- NOTE | 2022-10-05 06:15 | DI.ECHO.S_ITS ---
Interpretation Summary The ejection fraction is estimated to be 50-55%. The left atrium is borderline dilated. 1.0x0.8cm globular mass is seen attached to the RA aspect f the IAS. The aortic valve is mildly calcified. There is no hemodynamically significant valvular aortic stenosis. There is an anterior echo-free space consistent with a fat pad. There is a trace loculated pericardial effusion. Procedure: A two-dimensional transthoracic echocardiogram with color flow and Doppler was performed. The study quality was technically difficult. Comparison is made with the echocardiogram of 03/20/2016. The patient was in sinus rhythm with heart rates between 69-85 bpm during the exam. Left Ventricle: The left ventricle is normal in size and wall thickness. The ejection fraction is estimated to be 50-55%. There are no obvious focal wall motion abnormalities noted but poor endocardial definition reduces the sensitivity for the detection of such. Right Ventricle: The right ventricle is normal in size and function. Atria: The left atrium is borderline dilated. Right atrial size is normal. There is no Doppler evidence for an interatrial shunt. 1.0x0.8cm globular mass is seen attached to the RA aspect f the IAS. Mitral Valve: The mitral valve is normal in structure and function. There is trace mitral regurgitation. Aortic Valve: The aortic valve is not well visualized. The aortic valve is mildly calcified. There is no hemodynamically significant valvular aortic stenosis. No aortic regurgitation is present. Tricuspid Valve: The tricuspid valve is normal in structure and function. No tricuspid regurgitation. Pulmonary artery pressures cannot be estimated because of the lack of a measurable TR jet velocity. Pulmonic Valve: The pulmonic valve is not well visualized. There is no pulmonic valvular regurgitation. Great Vessels: The aortic root is normal size. The ascending aorta could not be visualized. The IVC is of normal diameter and collapses greater than 50% with a sniff. This suggests a low right atrial pressure of 3 mm Hg. Pericardium/ Pleura There is a trace loculated pericardial effusion. There is an anterior echo-free space consistent with a fat pad. There is no pleural effusion. MMode/2D Measurements & Calculations LVIDd: 4.4 cm LVOT diam: 1.9 cm LVIDs: 3.2 cm Ao root diam: 3.1 cm FS: 26.5 % EPSS: 0.99 cm IVSd: 0.94 cm LVPWd: 0.73 cm LV colby. diameter/BSA (cm/m^2): 2.5 LV sys. diameter/BSA (cm/m^2): 1.9 LA dimension: 3.9 cm RA long axis: 3.8 cm LA A4 area: 15.2 cm2 RA area: 11.0 cm2 LA length (vol): 4.6 cm RA vol: 26.8 ml RA : 15.5 ml/m2 IVC diam: 1.7 cm RVD1 (basal): 3.0 cm RVD2 (mid): 1.9 cm TAPSE: 2.1 cm Doppler Measurements & Calculations Ao V2 max: 130.3 cm/sec LVOT Max Jamel: 70.7 cm/sec Ao V2 mean: 96.8 cm/sec LV V1 max P.0 mmHg Ao max P.8 mmHg LV V1 VTI: 15.2 cm Ao mean P.1 mmHg ARGELIA(I,D): 1.6 cm2 Ao V2 VTI: 27.6 cm ARGELIA(V,D): 1.6 cm2 sev ratio: 0.55 ARGELIA indexed to BSA (cm^2/m^2): 0.93 MV E max jamel: 57.8 cm/sec PA V2 max: 86.6 cm/sec MV A max jamel: 67.3 cm/sec PA V2 mean: 56.4 cm/sec MV E/A: 0.86 PA mean P.4 mmHg Med Peak E' Jamel: 6.9 cm/sec PA pr(Accel): 27.6 mmHg E/E' med: 8.4 Lat Peak E' Jamel: 7.7 cm/sec E/E' lat: 7.5 E/e' average: 7.9 MV dec time: 0.20 sec SV(LVOT): 44.5 ml Reading Physician:09:45 AM
[2022-10-05] MEDS: DORZOLAMIDE 2% OPHTH 10 ML 1 DROPS EYE-BOTH ×2 (06:24→20:20)
[2022-10-05] MEDS: BRIMONIDINE 0.2% OPHTH 5 ML 1 DROPS EYE-BOTH ×2 (06:24→20:20)
[2022-10-05] MEDS: BUDESONIDE 0.5 MG/2 ML NEB INH ×2 (07:58→19:29)
[2022-10-05] MEDS: ALBUTEROL/IPRATROPIUM 3 ML AMPUL INH ×3 (07:58→19:29)
--- NOTE | 2022-10-05 08:50 | PM.PN.1 ---
Subjective Subjective Interval history: Patient feels 100% better than yesterday and can finally breath. Continues on 3L NC. Rate controlled with HR in 80's. Exam Vital Signs (past 8 hours): - 10/05/22 01:00 10/05/22 01:00 10/05/22 01:00 Temperature Pulse Rate 81 Respiratory Rate 11 L Blood Pressure 97/66 Pulse Oximetry 96 96 Oxygen Delivery Method Nasal Cannula Oxygen Flow Rate 3 3 Fraction of Inspired Oxygen 10/05/22 01:22 10/05/22 02:11 10/05/22 03:02 Temperature Pulse Rate 81 89 80 Respiratory Rate 13 30 H 15 Blood Pressure Pulse Oximetry 96 95 97 Oxygen Delivery Method Oxygen Flow Rate 3 3 3 Fraction of Inspired Oxygen 10/05/22 03:32 10/05/22 03:56 10/05/22 03:56 Temperature Pulse Rate 64 83 Respiratory Rate 24 14 Blood Pressure 98/60 Pulse Oximetry 97 95 Oxygen Delivery Method Room Air Oxygen Flow Rate 3 3 3 Fraction of Inspired Oxygen 32 10/05/22 04:00 10/05/22 04:00 10/05/22 04:25 Temperature 98.0 F Pulse Rate 87 87 Respiratory Rate 32 H 18 Blood Pressure 107/58 L Pulse Oximetry 95 96 Oxygen Delivery Method Oxygen Flow Rate 3 3 3 Fraction of Inspired Oxygen 10/05/22 05:00 10/05/22 05:00 10/05/22 05:00 Temperature Pulse Rate 87 Respiratory Rate 18 Blood Pressure 111/67 Pulse Oximetry 95 95 Oxygen Delivery Method Room Air Oxygen Flow Rate 3 3 Fraction of Inspired Oxygen 10/05/22 05:02 10/05/22 06:00 10/05/22 06:00 Temperature Pulse Rate 88 79 Respiratory Rate 24 14 Blood Pressure 115/62 Pulse Oximetry 94 95 Oxygen Delivery Method Oxygen Flow Rate 3 3 3 Fraction of Inspired Oxygen 10/05/22 06:44 10/05/22 07:58 10/05/22 07:00 Temperature Pulse Rate 75 72 Respiratory Rate 16 18 Blood Pressure Pulse Oximetry 95 96 Oxygen Delivery Method Nasal Cannula Nasal Cannula Oxygen Flow Rate 3 3 Fraction of Inspired Oxygen 32 Fraction of Inspired Oxygen 32 SaO2/FiO2 Ratio 300 Oxygen Delivery Method Nasal Cannula Oxygen Flow Rate 3 Narrative Exam Narrative: GEN: Elderly male, improved conversational dyspnea, Alert and oriented x3, occasional wet sounding cough, somewhat fatigued HEENT: Normocephalic, face symmetric, pupils equal round reactive to light, extraocular movements intact, sclerae anicteric, conjunctiva clear, nares patent, oropharynx reveals an intact soft and hard palate with moist mucous membranes, dentition is fair NECK: Supple, no lymphadenopathy, thyroid without enlargement or nodularity, carotids no bruits CHEST: Diminished breath sounds, rhoncchi present in right lung base CV: Regular rhythm, no murmurs, rubs, gallops, PMI nondisplaced ABD: Soft, nontender, nondistended, bowel sounds present in all 4 quadrants, no organomegaly or masses appreciated EXTR: Warm, well perfused, no clubbing/cyanosis/edema SKIN: Warm and dry, without rash NEURO: Alert and oriented x3, grossly intact PSYCH: Mood and affect is within normal limits, judgment and insight are appropriate Objective Labs 10/05/22 04:48 10/05/22 04:48 Labs: Laboratory Results - last 24 hr 10/04/22 10/04/22 10/04/22 14:00 14:00 14:00 WBC 16.4 H RBC 4.53 Hgb 13.7 Hct 41.3 MCV 91.1 MCH 30.3 MCHC 33.3 RDW 13.4 Plt Count 223 Neut % (Auto) 88.3 H Lymph % (Auto) 6.9 L [place] % (Auto) 3.9 Eos % (Auto) 0.0 L Baso % (Auto) 0.9 Neut # (Auto) 79822 H Lymph # (Auto) 1100 [place] # (Auto) 600 Eos # (Auto) 0 Baso # (Auto) 200 H Sodium 137 Potassium 3.5 Chloride 103 Carbon Dioxide 19 L BUN 22 H Creatinine 1.25 Estimated GFR 59 L BUN/Creatinine Ratio 17.6 Glucose 108 Lactate 2.3 H Calcium 8.7 Magnesium 1.9 Total Bilirubin 1.9 H Conjugated Bilirubin Unconjugated Bilirubin AST 73 H ALT 56 H Alkaline Phosphatase 116 Total Creatine Kinase CK-MB (CK-2) CK-MB (CK-2) Rel Index Troponin I NT-Pro-B Natriuret Pep 4730 H Total Protein 7.2 Albumin 3.5 Globulin 3.7 Albumin/Globulin Ratio 0.9 L Lipase 19 L Procalcitonin 6.41 H Chlamy pneumoniae PCR Adenovirus (PCR) B. pertussis DNA (PCR) B.parapertussis DNA PCR Coronavirus OC43 (PCR) Coronavirus HKU1 (PCR) Coronavirus 229E (PCR) SARS-CoV-2 (PCR) Coronavirus NL63 (PCR) Human Metapneumovir PCR Influenza Type A (PCR) Influenza Type B (PCR) M. pneumoniae (PCR) Parainfluenza 1 (PCR) Parainfluenza 2 (PCR) Parainfluenza 3 (PCR) Parainfluenza 4 (PCR) RSV (PCR) Entero/Rhino (PCR) 10/04/22 10/04/22 10/04/22 14:00 14:00 15:25 WBC RBC Hgb Hct MCV MCH MCHC RDW Plt Count Neut % (Auto) Lymph % (Auto) [place] % (Auto) Eos % (Auto) Baso % (Auto) Neut # (Auto) Lymph # (Auto) [place] # (Auto) Eos # (Auto) Baso # (Auto) Sodium Potassium Chloride Carbon Dioxide BUN Creatinine Estimated GFR BUN/Creatinine Ratio Glucose Lactate 1.8 Calcium Magnesium Total Bilirubin Conjugated Bilirubin Unconjugated Bilirubin AST ALT Alkaline Phosphatase Total Creatine Kinase 200 H CK-MB (CK-2) 2.95 H CK-MB (CK-2) Rel Index 1.5 Troponin I 0.057 H NT-Pro-B Natriuret Pep Total Protein Albumin Globulin Albumin/Globulin Ratio Lipase Procalcitonin Chlamy pneumoniae PCR Not detected Adenovirus (PCR) Not detected B. pertussis DNA (PCR) Not detected B.parapertussis DNA PCR Not detected Coronavirus OC43 (PCR) Not detected Coronavirus HKU1 (PCR) Not detected Coronavirus 229E (PCR) Not detected SARS-CoV-2 (PCR) Not detected Coronavirus NL63 (PCR) Not detected Human Metapneumovir PCR Detected H Influenza Type A (PCR) Not detected Influenza Type B (PCR) Not detected M. pneumoniae (PCR) Not detected Parainfluenza 1 (PCR) Not detected Parainfluenza 2 (PCR) Not detected Parainfluenza 3 (PCR) Not detected Parainfluenza 4 (PCR) Not detected RSV (PCR) Not detected Entero/Rhino (PCR) Not detected 10/04/22 10/05/22 10/05/22 18:45 00:33 04:48 WBC 13.4 H RBC 3.95 L Hgb 12.0 L Hct 35.3 L MCV 89.2 MCH 30.3 MCHC 33.9 RDW 13.7 Plt Count 192 Neut % (Auto) 92.5 H Lymph % (Auto) 5.4 L [place] % (Auto) 2.0 L Eos % (Auto) 0.0 L Baso % (Auto) 0.1 Neut # (Auto) 89741 H Lymph # (Auto) 700 L [place] # (Auto) 300 Eos # (Auto) 0 Baso # (Auto) 0 Sodium Potassium Chloride Carbon Dioxide BUN Creatinine Estimated GFR BUN/Creatinine Ratio Glucose Lactate Calcium Magnesium Total Bilirubin Conjugated Bilirubin Unconjugated Bilirubin AST ALT Alkaline Phosphatase Total Creatine Kinase CK-MB (CK-2) CK-MB (CK-2) Rel Index Troponin I 0.051 H 0.026 NT-Pro-B Natriuret Pep Total Protein Albumin Globulin Albumin/Globulin Ratio Lipase Procalcitonin Chlamy pneumoniae PCR Adenovirus (PCR) B. pertussis DNA (PCR) B.parapertussis DNA PCR Coronavirus OC43 (PCR) Coronavirus HKU1 (PCR) Coronavirus 229E (PCR) SARS-CoV-2 (PCR) Coronavirus NL63 (PCR) Human Metapneumovir PCR Influenza Type A (PCR) Influenza Type B (PCR) M. pneumoniae (PCR) Parainfluenza 1 (PCR) Parainfluenza 2 (PCR) Parainfluenza 3 (PCR) Parainfluenza 4 (PCR) RSV (PCR) Entero/Rhino (PCR) 10/05/22 10/05/22 04:48 04:48 WBC RBC Hgb Hct MCV MCH MCHC RDW Plt Count Neut % (Auto) Lymph % (Auto) [place] % (Auto) Eos % (Auto) Baso % (Auto) Neut # (Auto) Lymph # (Auto) [place] # (Auto) Eos # (Auto) Baso # (Auto) Sodium 134 L Potassium 3.2 L Chloride 105 Carbon Dioxide 18 L BUN 29 H Creatinine 1.07 Estimated GFR > 60 BUN/Creatinine Ratio 27.1 H Glucose 182 H Lactate Calcium 8.0 L Magnesium Total Bilirubin 0.9 1.0 Conjugated Bilirubin 0.0 Unconjugated Bilirubin 0.4 AST 56 56 ALT 59 H 58 H Alkaline Phosphatase 96 100 Total Creatine Kinase CK-MB (CK-2) CK-MB (CK-2) Rel Index Troponin I NT-Pro-B Natriuret Pep Total Protein 6.2 L 5.4 L Albumin 3.0 L 2.7 L Globulin 3.2 2.7 Albumin/Globulin Ratio 0.9 L 1.0 Lipase Procalcitonin Chlamy pneumoniae PCR Adenovirus (PCR) B. pertussis DNA (PCR) B.parapertussis DNA PCR Coronavirus OC43 (PCR) Coronavirus HKU1 (PCR) Coronavirus 229E (PCR) SARS-CoV-2 (PCR) Coronavirus NL63 (PCR) Human Metapneumovir PCR Influenza Type A (PCR) Influenza Type B (PCR) M. pneumoniae (PCR) Parainfluenza 1 (PCR) Parainfluenza 2 (PCR) Parainfluenza 3 (PCR) Parainfluenza 4 (PCR) RSV (PCR) Entero/Rhino (PCR) [facility] Medical History COPD (chronic obstructive pulmonary disease) Social History household members: spouse Smoking Status: Former smoker Assessment & Plan Assessment & Plan narrative: 1. Acute hypoxic respiratory failure, improving Patient presented with room air saturations in the 70s. He subsequently improved with nebulizer treatments and supplemental oxygen. He is now stable on 2-3 L of oxygen with saturations in the mid 90s. Etiology is felt to be combination of pneumonia, known severe COPD and atrial fib with RVR. He was initiated on IV Levaquin. Will transition to Rocephin and azithromycin as he likely has a community-acquired pneumonia. With adequate rate control and converting back to sinus rhythm, he likely does not have any further contributor secondary to his arrhythmia. However, BNP was elevated, likely reflective of poor cardiac function when his heart rate was in the 180 range. Plan to continue nebulizer treatments. F/u echo. 2. Right lower lobe pneumonia and positive metapneumovirus Likely he had metapneumovirus initially and now has sustained a superimposed right lower lobe bacterial community-acquired pneumonia. Procalcitonin is elevated, white blood cell count is also elevated and he has low-grade fevers. Will place on Rocephin and azithromycin. No specific treatment for metapneumovirus accept for supportive care. Continue nebulizer treatments. 3. COPD Although he is not wheezing, he is tachypneic and appears to have some component of COPD exacerbation. Received Solu-Medrol and transitioning to po prednisone. Continue nebulizer treatments with budesonide nebs. Titrate supp O2 to 88-92%. 4. Coronary artery disease Patient has had drug-eluting stents in an NSTEMI as recently as December of 2021. He does have a mildly elevated troponin at 0.057 on admission, which is likely demand ischemia related to initial elevated heart rates. Repeat trop lowered to 0.026His initial EKG revealed AFib with RVR. After converting to sinus rhythm follow-up EKG was obtained which revealed no ischemic changes. This is certainly reassuring. Continue his usual outpatient medications. It appears he takes ASA, Plavix, amlodipine, and losartan. He does not appear to be on a statin therapy. Unclear why. Start lipitor 40mg daily with ASA and plavix. 5. CKD 3 Creatinine on admission is 1.25. GFR is 59. Baseline creatinine is 1.3. This appears to be baseline. 6. Hypertension Typically on amlodipine and losartan on an outpatient basis. These have been held secondary to some hypotension here. 7. Hyperlipidemia Not presently on statin therapy. Uncertain why. This should be explored further as he is feeling better. 8. Reported obstructive sleep apnea Not on CPAP/BiPAP. Unclear how long ago this diagnosis was made. 9. Transaminitis May be secondary to acute infection or hepatic congestion related to his AFib and decreased cardiac output versus his known hepatic steatosis. Will follow. 10. GERD Does not appear to be on a PPI at baseline. Will monitor for symptoms. 11. Infrarenal abdominal aortic aneurysm measuring 4.5 x 4.[address] recent CT in 2021 He is followed by vascular surgery and reports they have no plans for surgical intervention until the aneurism increases in size. 12. Glaucoma Patient reports he uses latanoprost once daily but the other 2 glaucoma medications twice daily. These will be ordered and confirmed. 13. Paroxysmal AFib with RVR Patient reports no awareness of when he was in rapid AFib. His CHADS2 Vasc score is 4, equivalent with a 4.8% stroke risk annually. He would like to initiate anticoagulation. Started Eliquis with metoprolol tart low dose 12.5mg BID. Code status Full per patient Prophylaxis Initiate Eliquis this evening. His drug-eluting stent most recently was placed in December of 2021. Could discontinue Plavix and continue aspirin alone to reduce risk of bleeding complications. Disposition Likely home in 2 days. Time Spent With Patient Critical Care time: I spent a total of [] minutes of critical care time on this patient's care today; this time is exclusive of procedural time.
[2022-10-05] MEDS: MAGNESIUM SULFATE 2 GM/50 ML PIGGYBACK IV (09:11)
[2022-10-05] MEDS: APIXABAN 5 MG TABLET PO ×2 (09:12→20:13)
[2022-10-05] MEDS: predniSONE 20 MG TABLET 40 MG PO (09:12)
[2022-10-05] MEDS: ASPIRIN EC 81 MG TABLET PO (09:13)
[2022-10-05] MEDS: CLOPIDOGREL 75 MG TABLET PO (09:13)
[2022-10-05] MEDS: POTASSIUM CHLORIDE 20 MEQ TAB 40 MEQ PO (09:25)
[2022-10-05 09:38] LABS: Cholesterol 81 mg/dL (140-199); HDL Cholesterol 18 mg/dL (40-60); LDL Cholesterol Calculated 48 mg/dL (<100); Triglycerides 74 mg/dL (35-150)
[2022-10-05 09:40] LABS: Hemoglobin A1C% w Est Avg Glu 5.4 % (4.0-6.0)
--- NOTE | 2022-10-05 11:32 | PT.IIE ---
Current Diagnoses Acute respiratory failure with hypoxia (10/04/22) Medical History (Last Reviewed 10/04/22 @ 14:48 by Joaquin Scott DO) COPD (chronic obstructive pulmonary disease) Physical Therapy Inpatient Evaluation/Re-Eval M1 PT/OT-IP Prior Functional Status Start: 10/05/22 08:44 Freq: NEEDED Status: Active Protocol: Document 10/05/22 11:32 AW (Rec: 10/05/22 13:07 AW [id number]) Medical Review Prior Functional Status Medical History Reviewed Yes Communication WNL Mobility and Gait Independent without AD. Pt denies history of falls. Activities of Daily Living and IADL's Independent with all ADL and IADL needs. Pt does drive. Social History Household Members spouse Living Arrangements House Number of Floors (Floors) Two Floors Number of Stairs To Enter/Railing? Home is split-level. There is a level entrance through the garage. Pt climbs 6-7 steps wtih L rail ascending to living level. Pt's son and his family live downstairs. Home Environment Standard Height Toilet,Walk in Shower Employment Status Retired Additional Social History Comment Pt is a retired [employer]. He lives with his on the upper level of a split level home. His son and his family live in the lower level. M2 PT-IP Current Condition Start: 10/05/22 08:44 Freq: NEEDED Status: Active Protocol: Document 10/05/22 11:32 AW (Rec: 10/05/22 13:07 AW [id number]) Physical Therapy Current Condition Current Condition Evaluation Date 10/05/22 Treatment Diagnosis PNA secondary to metapneumovirus; impaired mobility Onset Date 1 week M3 PT-IP Subjective Start: 10/05/22 08:44 Freq: NEEDED Status: Active Protocol: Document 10/05/22 11:32 AW (Rec: 10/05/22 13:07 AW [id number]) Subjective Physical Therapy Visit Type Type Initial Evaluation Visit Start Time 11:02 Visit Stop Time 11:32 Total Visit Minutes 30 Notes Co-eval with OT due to pt's low activity tolerance. 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 I feel a lot better today than yesterday. Patient Goals Return home with family support. Therapy Pain Assessment Pain When Pain Assessed At Rest Pain Present Pain Present Pain Reported Location Abdomen Intensity 8 Scale Used pt reporting 8/10 acid reflux pain M4 PT-IP Mobility and Gait Start: 10/05/22 08:44 Freq: NEEDED Status: Active Protocol: Document 10/05/22 11:32 AW (Rec: 10/05/22 13:07 AW [id number]) PT-Bed Mobility Assessment Supine to Sit Supine to Sit Standby Assistance Scooting Scooting to Edge of Bed Standby Assistance PT-Transfer Assessment Sit to and From Stand Sit to and from Stand Contact Guard Assistance,Use of Upper Extremities Equipment Transfer Assistive Device None,Gait Belt,Front Wheeled Walker Transfers Transfer Destination Chair Transfer Technique ambulated with and without FWW Transfer Ability Level of Assist Contact Guard Assistance Comments Mobility Comments Pt was lying in bed as PT and OT arrived. SpO2 was 95% on 3L /min O2 via NC. Pt agreed to sit up, needing only SBA for bed mobility but with (+) SOB. SpO2 was stable. Pt attempted to use the FWW to pull himself up initially but responded well to cues to push from the bed instead. He stood CGA due to some initial unsteadiness. Pt walked around the foot of the bed without AD but stopped for extended rest breaks while holding on to furniture and other environmental support. Pt tends to breathe through his mouth and needed frequent cues for PLB. Pt had 2 instances of knee buckling during this gait trial, recovering with CGA and reaching for objects in the room. SpO2 was stable 90-94% during activity. He transferred to the chair and needed several minutes rest to recover. Pt was able to stand again with CGA and used FWW to ambulate another 4 feet forward and 4 feet backward but needed to sit due to fatigue and SOB. Pt was left in the chair with call light in reach. Informed RN of need for a chair alarm. Gait Assessment Gait Gait Assistance Required: Standby Assistance,Contact Guard Assist Distance (Feet) 15 Assistive Devices Assistive Device None,Gait Belt,Front Wheeled Walker Gait Deviations General Gait Pattern Antalgic,Decreased Stride Length,Decreased Feet Clearance,Flexed Trunk Factors Limiting Gait Function Factors Limiting Gait Function Decreased Activity Tolerance, Poor Balance,Poor Safety Awareness,Respiratory Distress Comments Gait Comments Pt needed close CGA to ambulate 15 feet without AD. Improved to SBA with use of FWW. Educated pt on recommendation for use of FWW at this time. Pt was resistant but willing to try at least while hospitalized. Stair Climbing Assessment Comments Stair Climbing Comments Not assessed. PT-Balance Assessment Sitting Balance and Reactions Static Sitting Balance Ability Normal Dynamic Sitting Balance Ability Good Standing Balance and Reactions Static Standing Balance Ability Fair Dynamic Standing Balance Ability Fair Device Used no AD; FWW Balance Tests Romberg able with FWW Tandem Standing able with FWW Functional Assessments Functional Tests 2 Minute Walk Test ~15 feet in 2 minutes due to SOB and fatigue M5 PT-IP Objective Assessments Start: 10/05/22 08:44 Freq: NEEDED Status: Active Protocol: Document 10/05/22 11:32 AW (Rec: 10/05/22 13:07 AW [id number]) Orientation Orientation/Cognition Level of Alertness Alert Orientation Name,Day of Week,Place, Situation Safety Awareness Decreased Safety Awareness Gross Range of Motion Upper Extremity ROM Assessment Within Functional Limits Lower Extremity ROM Assessment Within Functional Limits Strength Upper Extremity Strength Assessment Within Functional Limits Lower Extremity Strength Assessment Within Functional Limits Comments Strength Comments BLE grossly 5/5 on MMT but functionally requires CGA with positive episodes of RLE buckling. Sensation Assessment Sensation Gross Sensation WNL M6 PT-IP Treatment Start: 10/05/22 08:44 Freq: NEEDED Status: Active Protocol: Document 10/05/22 11:32 AW (Rec: 10/05/22 13:07 AW [id number]) Physical Therapy Treatment Education Education Provided Safety Other Treatments Other Treatment Performed Extensive education on benefits of using FWW at this time. M7 PT-IP Assessment and Plan Start: 10/05/22 08:44 Freq: NEEDED Status: Active Protocol: Document 10/05/22 11:32 AW (Rec: 10/05/22 13:07 AW [id number]) PT Summary Assessment and Plan Potential Rehabilitation Potential Good Status of Condition at Evaluation Evolving Summary Impairments Pain,Strength,Balance, Transfers,Gait,Activity Tolerance Assessment Summary Lucius is a 77 yo man with PMH including COPD (no home o2), CAD s/p DE stents, CKD3, and SERGEY. He is admitted with RLL pneumonia secondary to metapneumovirus and possible new onset atrial fibrillation. PLOF: Pt is independent in all regards and is primary caregiver for his spouse. He lives on the upper level of a split level home with his spouse. His son lives with family in the lower level. CLOF: Pt was able to complete transfers SBA but needed up to CGA for ambulation 15 feet without assistive device. Gait improved to SBA with FWW. SpO2 was stable 90-94% on 3L/ min via NC but with labored breathing/SOB. Pt is clearly debilitated compared with baseline function and not tolerating much activity but PT anticipates his mobility will progress as his medical condition improves. Currently recommending home with assist and home health PT. Goals Bed Mobility Goal Independent Transfer Goal Independent,Front Wheeled Walker Gait Goal Independent,Front Wheel Walker Gait Distance 200 Other Goals - up/down 6 steps with L rail ascending SBA - improve gait and transfers to IND without AD Days to Meet Goals 5 Frequency of Treatment Frequency Of Treatment Once a Day Treatment Plan Physical Therapy Treatment Plan Bed Mobility Training,Transfer Training,Gait Training, Therapeutic Exercise,Balance Retraining,Discharge Planning, Hot or Cold Pack,Neuromuscular Re-ed Precautions Other Precautions O2 sats Recommendations To Nursing Amount of Assist Needed 1 Person Assist Discharge Recommendations PT Discharge Recommendations Home with Assistance,Home Health Transportation Needs at Discharge Private Vehicle
--- NOTE | 2022-10-05 11:39 | OT.IP.EVAL ---
Current Diagnoses Acute respiratory failure with hypoxia (10/04/22) Past Medical History (Last Reviewed 10/04/22 @ 14:48 by Joaquin Scott DO) COPD (chronic obstructive pulmonary disease) Occupational Therapy Inpatient Evaluation/Re-Eval M1 PT/OT-IP Prior Functional Status Start: 10/05/22 08:44 Freq: NEEDED Status: Active Protocol: Document 10/05/22 11:02 [facility] (Rec: 10/05/22 13:05 [facility] [id number]) Medical Review Prior Functional Status Communication independent Mobility and Gait Pt states did not use any devices prior. Activities of Daily Living and IADL's Pt states was completely independent with ADL, IADL, and drives. Social History Household Members spouse Living Arrangements House Number of Floors (Floors) Two Floors Number of Stairs To Enter/Railing? Pt has 6 steps with left rail up to his living area. Pt states has a full living quarters downstairs in which his son, DIL ,and grand daughter live. Home Environment Standard Height Toilet,Walk in Shower M2 OT-IP Current Condition Start: 10/05/22 12:44 Freq: Status: Active Protocol: Document 10/05/22 11:02 [facility] (Rec: 10/05/22 13:05 [facility] [id number]) Occupational Therapy Current Condition Current Condition Evaluation Date 10/05/22 Treatment Diagnosis Acute hypoxic respiratory failure Diagnosis Onset Date 10/04/22 M3 OT- IP Subjective and Pain Start: 10/05/22 12:44 Freq: Status: Active Protocol: Document 10/05/22 11:02 [facility] (Rec: 10/05/22 13:05 [facility] [id number]) OT- Subjective Occupational Therapy Visit Type Type Initial Evaluation Visit Start Time 11:02 Visit Stop Time 11:39 Total Visit Minutes 37 Notes Pt having severe pain from reflux , nursing notified. Occupational Therapy Visit Comments Patient Comments Pt agreed to get up. Patient/Caregiver Goals TO go home. OT Pain Assessment Pain When Pain Assessed At Rest Pain Present Pain Present Pain Reported M4 OT- IP ADL's Start: 10/05/22 12:44 Freq: Status: Active Protocol: Document 10/05/22 11:02 [facility] (Rec: 10/05/22 13:05 [facility] [id number]) OT ADL-Grooming General Evaluation Grooming Ability Standby Assistance Areas Needing Assistance Retrieving/Set-up of Grooming Items Comments OT Grooming Comments Able to do while seated. OT ADL-Oral Care General Eval Oral Care Ability Independent Areas of Assistance Retrieving/Set-Up of Items Comments Oral Care Comments Able to do while seated. Tired to walk to the sink with FWW and getting too SOB. OT ADL-Dressing Comments OT Dressing Comments Not performed. OT ADL-Toileting Comments OT Toileting Comments NOt performed. OT ADL-Bathing Comments OT Bathing Comments NOt performed, sponge bathing more appropriate due to decreased activity tolerance. M5 OT- IP IADL's Start: 10/05/22 12:44 Freq: Status: Active Protocol: Document 10/05/22 11:02 [facility] (Rec: 10/05/22 13:05 [facility] [id number]) OT-Instrumental Activities of Daily Living Deficits IADL Deficits Identified Deficits Home Safety Awareness Awareness of Need for Assistance at Home Good Awareness Home Safety Comments Pt is aware that he will need assist for needs especially for IADl needs. M6 OT- IP Functional Cognition Start: 10/05/22 12:44 Freq: Status: Active Protocol: Document 10/05/22 11:02 [facility] (Rec: 10/05/22 13:05 [facility] [id number]) Cognitive Factors Limiting Selfcare Function Cognitive Ability Level of Alertness Alert Patient Orientation Name,Place,Situation Attention Span Ability Capable of Focused Attention, Capable of Sustained Attention Ability to Follow Commands Able to Follow One Step Commands Safety Awareness Underestimates Need for Assistance Cognitive Comments Cognitive Assessment Comments Pt a bit impulsive and needing cues to slow down. Pt also needing encouragement to use the FWW as at this time pt is a little unsteady on his feet. OT- Vision and Hearing OT- Hearing Assessment OT- Hearing Assessment WFL M7 OT- IP Mobility and Balance Start: 10/05/22 12:44 Freq: Status: Active Protocol: Document 10/05/22 11:02 [facility] (Rec: 10/05/22 13:05 [facility] [id number]) OT- Bed Mobility Assessment Supine to Sit Supine to Sit Assist Standby Assistance OT-Transfer Assessment Sit to and From Stand Sit to and from Stand Standby Assistance Transfers Transfer Ability Contact Guard Assistance Technique Transfer Destination Bed,Chair Transfer Technique Stand Step Pivot Devices Transfer Assistive Devices None,Gait Belt,Front Wheeled Walker Comments Mobility Comments Increased time and momentum to get to the edge of the bed. SBA to stand and having to hold to the foot board for his balance and a little unsteady on his feet and needing CGA for balance. Trial of FWW and better for balance but just tiring quickly. OT- Balance Assessment Sitting Balance and Reactions Static Sitting Balance Ability Good Dynamic Sitting Balance Ability Fair Standing Balance and Reactions Static Standing Balance Ability Good Dynamic Standing Balance Ability Fair M8 OT- IP Objective Assessments Start: 10/05/22 12:44 Freq: Status: Active Protocol: Document 10/05/22 11:02 [facility] (Rec: 10/05/22 13:05 [facility] [id number]) OT Gross Range of Motion Upper Extremity Range of Motion Assessment Right Impaired ROM Impairments Decreased at end ROM , pt's gown also impeding his movements. OT Strength Comments Strength Comments RUE 4/5, LUE 4+/5 M9 OT- IP Assessment and Plan Start: 10/05/22 12:44 Freq: Status: Active Protocol: Document 10/05/22 11:02 [facility] (Rec: 10/05/22 13:05 [facility] [id number]) OT Summary Assessment and Plan Potential Rehabilitation Potential Good Summary OT Impairments Pain,Range of Motion,Strength, Balance,Functional Mobility, Grooming,Dressing,Toileting, Bathing,Toilet Transfers, Shower Transfers,Activity Tolerance Progress Towards Goals Slow Progress due to Pain,Slow Progress due to Medical Issues,Slow Progress due to Activity Tolerance Assessment Summary Pt MOD complexity and main barriers are decreased activity tolerance, dynamic balance and now needing use of FWW for mobility. Pt when medically stable to go home with assist. Pt currently on 3L of O2 and during OT eval from 91-94%. Goals Grooming Goal Independent Dressing Goal Independent Toileting Goal Independent Bathing Goal Independent Toilet Transfer Goal Independent Shower Transfer Goal Independent Days to Meet Goals 7 Frequency of Treatment Frequency Of Treatment Once a Day Treatment Plan OT Treatment Plan ADL Training,Functional Mobility,Patient/Family Education,Discharge Planning Other Treatment Recommendations and Next Stand at the sink for ADL Treatment Focus needs. Discharge Recommendations OT Discharge Recommendations Home with Assistance Home Equipment Needs shower chair, fww Transportation Needs at Discharge Private Vehicle
--- NOTE | 2022-10-05 11:42 | CM.DANOTE ---
Patient is a 77 yo male who was admitted on 10/04/22 for SOB. Pt has [facility] for insurance and his PCP is Jessica Canales. EMR was reviewed. Per , pt with hx of heart stent placement in 2021 and sleep apnea and AFIB converted in ED and admitted for Acute Hypoxic Resp Failure and pneumonia. Pt currently on oxygen. PT/OT ordered and pending. SW met bedside with pt and explained role and pt confirms he lives in [place] with his spouse/DPOA of 55 years and they have local adult sons that are supportive. Pt states he is typically very active and independent at baseline, drives, does not use DME and no hx of HH or SNF. Pt confirms he is currently quite below baseline but feels he should make progress for safe d/c home with spouse and family assist and is eager to get up to mobilize. Pt's current limitations based on de-sats. Plan: SW to follow closely for PT/OT to confirm safe d/c to home and r/o HH needs and any further identified discharge planning needs. RYAN Dickerson Discharge Planning/Care Management CM Discharge Assessment Start: 10/05/22 11:41 Freq: Status: Active Protocol: Document 10/05/22 11:41 BF (Rec: 10/05/22 11:42 BF [id number]) Discharge Planning Assessment Assigned Aggregate Conveyor Operator RYAN Hernandez DPOA/Assigned Designee Name spouse Tiffany Contact Information [phone] Advance Directives? No Advance Directives on File No History Provided By Patient,Medical Record Has Patient been admitted in last 30 No days? Prior Living Arrangements House Household Members spouse Type of transporation used prior to Drives own vehicle admit Independent with ADL's Yes Is patient alert and oriented? Yes Caregiver for Another No Comment r/o HH pending PT/OT eval Barriers to Discharge No Discharge Plan Home Transportation Arrangement Spouse or son can transport home Referrals Initiated None needed Additional Comment Pending PT/OT eval Whiteboard Updated in Patient Room with Yes name and ext. # of Aggregate Conveyor Operator Review Status In Process Please Provide Date Initial DC 10/05/22 Assessment Was Performed Next Review Type Continued Stay Review
[2022-10-05] MEDS: CALCIUM CARBONATE 500 MG TAB 2000 MG PO (11:47)
[2022-10-05] MEDS: PANTOPRAZOLE DR 40 MG TABLET PO (12:51)
[2022-10-05] MEDS: SODIUM CHLORIDE 0.9% 500 ML IV (13:25)
--- NOTE | 2022-10-05 13:28 | DIET.CONS ---
Dietary Consultation Note Admission Date: 10/04/2022 15:47 Assessment: 77y M admitted for SOB satting in 70s on room air found to have human metapneumovirus screened by RD for reported poor POs. H&P reveals pt with no PO intake x1w prior to admission and very little fluid intake. When pt would try to eat, he would immediately have watery diarrhea. Pt with hx GERD, consumed chicken broth and cup ice cream. Not eating grilled cheese or drinking coffee for fears of acid reflux. Pt states he was unable to think of anything he would like for dinner tonight. Pt's baseline stable weight is 70.4kg. Pt with 9% unintentional weight loss in 1w. Pt alarmed by his weakness and weight loss and would like to work on supporting strength and getting back up to his baseline weight. Ht: 167.64 cm Wt: 64.1 kg (-9% in 1w, severe) BMI: 22.8 UBW: 70.4kg Last BM: () MNA: Ezekiel Score: 20 Diet: 10/04/22 Dinner General (Regular) Diet Diet Modifications: yogurt c lunches, ONS c dinner Nutrition Percent Meal Consumed 25% 10/05/22 12:49 Percent Meal Consumed snacks provided 10/05/22 06:00 Labs: RBC 3.95 X10^6/uL (4.5-5.9) L 10/05/22 04:48 Hgb 12.0 g/dL (13.5-17.5) L 10/05/22 04:48 Hct 35.3 % (41-53) L 10/05/22 04:48 Creatinine 1.07 mg/dL (0.66-1.25) 10/05/22 04:48 Hemoglobin A1c 5.4 % (4.0-6.0) 10/05/22 05:14 Lactate 1.8 mmol/L (0.7-2.1) 10/04/22 15:25 NT-Pro-B Natriuret Pep 4730 pg/mL (<450) H 10/04/22 14:00 Nutrition Diagnosis: Severe Acute Protein Calorie Malnutrition r/t acute illness aeb pt admitted with human metapneumovirus, 9% unintentional weight loss in 1w (severe), pt with 1w nearly no nutritional intake and a week of watery diarrhea -The patient is at much higher risk for medical and surgical complications because of malnutrition. This increases the difficulty and complexity of medical and surgical interventions and increases the chances of poor outcomes such as morbidity and mortality. Interventions: 1. To support pts nutrition status while hospitalized, sending yogurt with lunch trays and ONS Ensure with dinner tray daily. 2. Collaborated c pt and kitchen on meal items which will not aggravate pts GERD while being sufficient in protein to support LBM. EER: 65-80g PRO (1.0-1.2g/kg per renal PCM), 1950kcals (30kcal/kg per PCM) Monitoring/Evaluations: POs, ONS tolerance Electronically Signed by: Sarai Rodriguez 10/05/22 13:28 Clinical Dietitian [address] [address]
--- NOTE | 2022-10-05 13:49 | PC.NURSE ---
Addendum entered by Aishwarya Childs R.N. 10/05/22 14:06: 500 ml bolus administered. Rechecked BP 103/55 85 HR. Provider notified that bolus effective. Will continue to monitor. Original Note: BUSINESS PROGRAMMER notified us that pt's BP was low- 85/63. Provider notified @ 1310 and ordered a 500 ml bolus of NS. Pt's BP before administration of bolus was 70/47 @ 1324. After starting bolus pt's BP went to 89/50 @ 1332. Pt ellen s/s such as dyaphoresis. light-headedness or dizziness. Repositioned pt to lay in recliner and gave him more water. Will continue to monitor.
[2022-10-05] MEDS: cefTRIAXone 1,000 MG in SODIUM CHLORIDE 0.9% 100 ML 200 MG IV (16:43)
[2022-10-05] MEDS: AZITHROMYCIN 500 MG in DEXTROSE 5% IN WATER 250 ML 250 MG IV (16:43)
[2022-10-05] MEDS: LATANOPROST 0.005% OPHTH 2.5 ML 1 DROPS EYE-BOTH (17:00)
[2022-10-05] MEDS: METOPROLOL IR 25 MG TABLET 12.5 MG PO (20:13)
[2022-10-05] MEDS: ATORVASTATIN 20 MG TABLET 40 MG PO (20:13)
[2022-10-05] MEDS: SODIUM CHLORIDE 0.9% FLUSH 10 ML IV (20:20)
--- NOTE | 2022-10-05 23:07 | PC.NURSE ---
Patient is alert and oriented except to day of month/day of week. Breath sounds diminished and coarse and becomes SOB with any activity. On oxygen at 3L/min per NC with sat of 94%. HRR w/telemetry reading of SR w/BBB. Denies nausea. BT present and is passing flatus. Voiding per urinal; denies dysuria. Is able to turn himself in bed. Gait not assessed but previous RN reported he is up to [facility] with 1 assist doing pivot. Patient reports he does not use an assistive device at home. Bilateral calf SCD's applied. Denies pain. Fall risk score is moderate and bed alarm is activated. Continues on droplet precautions due to being positive for metapneumovir.
[2022-10-06] VITALS (7 sets, daily range): BP systolic 105–120; BP diastolic 63–70; PULSE 72–87; RESP 16–23; TEMP 36.3–36.6; O2SAT 91–96
[2022-10-06 04:59] LABS: Add Manual Diff / Slide Review NO; Basophils Absolute Auto 0 /uL (0-100); Basophils Percent Auto 0.1 % (0-2); Eosinophils Absolute Auto 0 /uL (0-450); Hematocrit 32.5 % (41-53); Hemoglobin 11.1 g/dL (13.5-17.5); Lymphocytes Absolute Auto 1100 /uL (1100-4500); Lymphocytes Percent Auto 6.1 % (25-40); Mean Corpuscular HGB Conc 34.1 % (30-36); Mean Corpuscular Hemoglobin 30.3 PG (26-34); Mean Corpuscular Volume 88.7 fL (80-100); Monocytes Absolute Auto 500 /uL (0-900); Monocytes Percent Auto 2.6 % (3-14); Neutrophils Absolute Auto 16800 /uL (1500-7000); Neutrophils Percent Auto 91.2 % (50-75); Platelet Count 238 X10^3/uL (150-400); Red Blood Cell Count 3.67 X10^6/uL (4.5-5.9); Red Cell Distribution Width 13.8 % (11.6-14.8); White Blood Cell Count 18.4 X10^3/uL (4.5-11.0)
[2022-10-06 05:16] LABS: BUN Creatinine Ratio 26.7 (6-22); Blood Urea Nitrogen 32 mg/dL (9-20); Calcium 8.3 mg/dL (8.4-10.2); Carbon Dioxide 20 mmol/L (22-32); Chloride 110 mmol/L (98-107); Estimated Glomerular Filt Rate > 60 mL/min (>60); Glucose 154 mg/dL (80-110); HEMOLYSIS < 15 (0-50); Potassium 3.5 mmol/L (3.4-5.1); Sodium 137 mmol/L (137-145)
[2022-10-06 05:18] LABS: Magnesium 2.5 mg/dL (1.6-2.3)
[2022-10-06] MEDS: PANTOPRAZOLE DR 40 MG TABLET PO (06:13)
[2022-10-06] MEDS: ALBUTEROL/IPRATROPIUM 3 ML AMPUL INH ×3 (07:53→18:12)
[2022-10-06] MEDS: BRIMONIDINE 0.2% OPHTH 5 ML 1 DROPS EYE-BOTH ×2 (08:23→14:20)
[2022-10-06] MEDS: METOPROLOL IR 25 MG TABLET 12.5 MG PO ×2 (08:28→21:09)
[2022-10-06] MEDS: ASPIRIN EC 81 MG TABLET PO (08:28)
[2022-10-06] MEDS: CLOPIDOGREL 75 MG TABLET PO (08:28)
[2022-10-06] MEDS: APIXABAN 5 MG TABLET PO ×2 (08:28→21:09)
[2022-10-06] MEDS: predniSONE 20 MG TABLET 40 MG PO (08:28)
[2022-10-06] MEDS: BUDESONIDE 0.5 MG/2 ML NEB INH ×2 (08:30→18:12)
[2022-10-06] MEDS: DORZOLAMIDE 2% OPHTH 10 ML 1 DROPS EYE-BOTH ×2 (08:31→14:20)
[2022-10-06] MEDS: SODIUM CHLORIDE 0.9% FLUSH 10 ML IV (08:34)
--- NOTE | 2022-10-06 10:55 | OT.IP.TRT ---
Current Diagnoses Acute respiratory failure with hypoxia (10/04/22) Occupational Therapy Treatment Note M2 OT-IP Current Condition Start: 10/05/22 12:44 Freq: Status: Active Protocol: Document 10/05/22 11:02 [facility] (Rec: 10/05/22 13:05 [facility] [id number]) Occupational Therapy Current Condition Current Condition Evaluation Date 10/05/22 Treatment Diagnosis Acute hypoxic respiratory failure Diagnosis Onset Date 10/04/22 M3 OT- IP Subjective and Pain Start: 10/05/22 12:44 Freq: Status: Active Protocol: Document 10/06/22 10:35 [facility] (Rec: 10/06/22 11:30 [facility] [id number]) OT- Subjective Occupational Therapy Visit Type Type Treatment Note Visit Start Time 10:30 Visit Stop Time 10:55 Total Visit Minutes 25 Occupational Therapy Visit Comments Patient Comments Pt agree to get up. Patient/Caregiver Goals TO go home. OT Pain Assessment Pain When Pain Assessed At Rest Pain Present Pain Present Denied Pain M4 OT- IP ADL's Start: 10/05/22 12:44 Freq: Status: Active Protocol: Document 10/06/22 10:35 [facility] (Rec: 10/06/22 11:30 [facility] [id number]) OT RUK-Soxp-Mziyrlv General Evaluation Self-Feeding Ability Independent OT ADL-Dressing General Eval Lower Body Dressing Ability Independent OT ADL-Toileting Comments OT Toileting Comments Pt states wanting to use the urinal but ended up not needing to go. OT ADL-Bathing Comments OT Bathing Comments Pt will definitely benefit from a shower chair at home. M5 OT- IP IADL's Start: 10/05/22 12:44 Freq: Status: Active Protocol: Document 10/05/22 11:02 [facility] (Rec: 10/05/22 13:05 [facility] [id number]) OT-Instrumental Activities of Daily Living Deficits IADL Deficits Identified Deficits Home Safety Awareness Awareness of Need for Assistance at Home Good Awareness Home Safety Comments Pt is aware that he will need assist for needs especially for IADl needs. M6 OT- IP Functional Cognition Start: 10/05/22 12:44 Freq: Status: Active Protocol: Document 10/06/22 10:35 [facility] (Rec: 10/06/22 11:30 [facility] [id number]) Cognitive Factors Limiting Selfcare Function Cognitive Ability Safety Awareness Underestimates Need for Assistance Cognitive Comments Cognitive Assessment Comments Pt insistent on not having any devices and states will do so if he sees it is needed. M7 OT- IP Mobility and Balance Start: 10/05/22 12:44 Freq: Status: Active Protocol: Document 10/06/22 10:35 [facility] (Rec: 10/06/22 11:30 [facility] [id number]) OT- Bed Mobility Assessment Supine to Sit Supine to Sit Assist Standby Assistance Sit to Supine Sit to Supine Assist Standby Assistance OT-Transfer Assessment Sit to and From Stand Sit to and from Stand Standby Assistance Transfers Transfer Ability Contact Guard Assistance, Minimal Assistance Technique Transfer Destination Bed Transfer Technique Stand Step Pivot Devices Transfer Assistive Devices None,Gait Belt Comments Mobility Comments Pt now on RA 93% and after walking to the sink dropped to 86% and needing 2-3 minutes to recover to 90%. Pt needing CGA to JOSÉ MIGUEL for his balance as still a bit unsteady on his feet. Pt insistent on not using any devices and that he will just hold onto surfaces at home. OT- Balance Assessment Sitting Balance and Reactions Static Sitting Balance Ability Good Dynamic Sitting Balance Ability Fair Standing Balance and Reactions Static Standing Balance Ability Fair Dynamic Standing Balance Ability Poor M8 OT- IP Objective Assessments Start: 10/05/22 12:44 Freq: Status: Active Protocol: Document 10/05/22 11:02 [facility] (Rec: 10/05/22 13:05 [facility] [id number]) OT Gross Range of Motion Upper Extremity Range of Motion Assessment Right Impaired ROM Impairments Decreased at end ROM , pt's gown also impeding his movements. OT Strength Comments Strength Comments RUE 4/5, LUE 4+/5 M9 OT- IP Assessment and Plan Start: 10/05/22 12:44 Freq: Status: Active Protocol: Document 10/06/22 10:35 [facility] (Rec: 10/06/22 11:30 [facility] [id number]) OT Summary Assessment and Plan Potential Rehabilitation Potential Good Analytic Complexity at Evaluation Moderate Summary OT Impairments Pain,Range of Motion,Strength, Balance,Functional Mobility, Grooming,Dressing,Toileting, Bathing,Toilet Transfers, Shower Transfers,Activity Tolerance Progress Towards Goals Slow Progress due to Medical Issues,Slow Progress due to Activity Tolerance Assessment Summary Pt a little more unsteady on his feet and more SOB , but not on O2 . On RA 93% and dropped to 86%and needing several minutes to recover up over 90%. Pt would benefit from home health. Pt adamantly refusing to have any services at this time. Goals Grooming Goal Independent Dressing Goal Independent Toileting Goal Independent Bathing Goal Independent Toilet Transfer Goal Independent Shower Transfer Goal Independent Days to Meet Goals 5 Frequency of Treatment Frequency Of Treatment Once a Day Treatment Plan OT Treatment Plan ADL Training,Functional Mobility,Patient/Family Education,Discharge Planning Other Treatment Recommendations and Next Stand at the sink for ADL Treatment Focus needs. Discharge Recommendations OT Discharge Recommendations Home with Assistance,Home Health Home Equipment Needs shower chair, fww/cane Transportation Needs at Discharge Private Vehicle
--- NOTE | 2022-10-06 13:59 | PT.IPTN ---
Current Diagnoses Acute respiratory failure with hypoxia (10/04/22) Physical Therapy Treatment Note M2 PT-IP Current Condition Start: 10/05/22 08:44 Freq: NEEDED Status: Active Protocol: Document 10/05/22 11:32 AW (Rec: 10/05/22 13:07 AW [id number]) Physical Therapy Current Condition Current Condition Evaluation Date 10/05/22 Treatment Diagnosis PNA secondary to metapneumovirus; impaired mobility Onset Date 1 week M3 PT-IP Subjective Start: 10/05/22 08:44 Freq: NEEDED Status: Active Protocol: Document 10/06/22 14:31 TS (Rec: 10/06/22 14:59 TS [id number]) Subjective Physical Therapy Visit Type Type Treatment Note Visit Start Time 13:59 Visit Stop Time 14:25 Total Visit Minutes 26 Notes Spo2: 92% Ra resting in bed, 84% RA after ambulation, 2L 94 %, 91% RA sitting EOB. Number of [employer] Visits 1 Physical Therapy Visit Comments Patient Comments Pt reports he feels like he is improving and is agreeable to PT session. Patient Goals Return home with family support. M4 PT-IP Mobility and Gait Start: 10/05/22 08:44 Freq: NEEDED Status: Active Protocol: Document 10/06/22 14:31 TS (Rec: 10/06/22 14:59 TS [id number]) PT-Bed Mobility Assessment Supine to Sit Supine to Sit Standby Assistance Sit to Supine Sit to Supine Standby Assistance Scooting Scooting to Edge of Bed Standby Assistance Scooting Up and Down in Bed Standby Assistance PT-Transfer Assessment Sit to and From Stand Sit to and from Stand Standby Assistance Comments Mobility Comments Pt found resting in bed, off of O2, 92% RA and agreeable to PT session. Pt performed supine to sit SBA with BUE support on bed. He demonstrated good sitting balance maintaing midline and upright posture without UE support, has a persistent cough when sitting EOB. Pt performed sit to stand SBA with FWW, provided cues for BUE pushing from bed to come into standing. He ambulated 2x15 with some swaying and narrow EDIE. He became SOB after intial 15' and required a 30 sec rest break before continuing back to bed. He performed stand to sit SBA with good eccentric control. Spo2 decreased to 84% on RA, increased to 94% on 2L, recovered in ~30secs. He performed another sit to stand with a cane SBA, still some swaying and narrrow EDIE 2x5'. He was left back in bed with tray and call light nearby, on RA and bed alarm set. Gait Assessment Gait Gait Assistance Required: Standby Assistance,Contact Guard Assist Distance (Feet) 40 Assistive Devices Assistive Device Gait Belt,Straight Cane,Front Wheeled Walker Gait Deviations General Gait Pattern Antalgic,Decreased Stride Length,Decreased Feet Clearance,Flexed Trunk,Narrow Based Gait Factors Limiting Gait Function Factors Limiting Gait Function Decreased Activity Tolerance, Poor Balance,Poor Safety Awareness,Respiratory Distress Comments Gait Comments See mobility comments. Stair Climbing Assessment Comments Stair Climbing Comments Not assessed. PT-Balance Assessment Sitting Balance and Reactions Static Sitting Balance Ability Normal Dynamic Sitting Balance Ability Good Standing Balance and Reactions Static Standing Balance Ability Fair Dynamic Standing Balance Ability Poor Device Used FWW, cane M5 PT-IP Objective Assessments Start: 10/05/22 08:44 Freq: NEEDED Status: Active Protocol: Document 10/05/22 11:32 AW (Rec: 10/05/22 13:07 AW [id number]) Orientation Orientation/Cognition Level of Alertness Alert Orientation Name,Day of Week,Place, Situation Safety Awareness Decreased Safety Awareness Gross Range of Motion Upper Extremity ROM Assessment Within Functional Limits Lower Extremity ROM Assessment Within Functional Limits Strength Upper Extremity Strength Assessment Within Functional Limits Lower Extremity Strength Assessment Within Functional Limits Comments Strength Comments BLE grossly 5/5 on MMT but functionally requires CGA with positive episodes of RLE buckling. Sensation Assessment Sensation Gross Sensation WNL M6 PT-IP Treatment Start: 10/05/22 08:44 Freq: NEEDED Status: Active Protocol: Document 10/06/22 14:31 TS (Rec: 10/06/22 14:59 TS [id number]) Physical Therapy Treatment Education Education Provided Safety Other Treatments Other Treatment Performed Provided reinforcement of the use of an assistive device. M7 PT-IP Assessment and Plan Start: 10/05/22 08:44 Freq: NEEDED Status: Active Protocol: Document 10/06/22 14:31 TS (Rec: 10/06/22 14:59 TS [id number]) PT Summary Assessment and Plan Potential Rehabilitation Potential Good Status of Condition at Evaluation Evolving Summary Impairments Pain,Strength,Balance, Transfers,Gait,Activity Tolerance Assessment Summary Pt continues to be SBA for all bed mobility and sit to stands with FWW and cane. He progressed his ambulation distance to 2x15' with FWW and 2x5' with cane but becomes fatigued/SOB after 15'. He demonstrates swaying and narrow EDIE during ambulation with cane/FWW remaining a falls risk. PT continues to recommend home with assist and HHPT to improve balance and stair training. Goals Bed Mobility Goal Independent Transfer Goal Independent,Front Wheeled Walker Gait Goal Independent,Front Wheel Walker Gait Distance 200 Other Goals - up/down 6 steps with L rail ascending SBA - improve gait and transfers to IND without AD Days to Meet Goals 5 Frequency of Treatment Frequency Of Treatment Once a Day Treatment Plan Physical Therapy Treatment Plan Bed Mobility Training,Transfer Training,Gait Training, Therapeutic Exercise,Balance Retraining,Discharge Planning, Hot or Cold Pack,Neuromuscular Re-ed Precautions Other Precautions O2 sats Recommendations To Nursing Amount of Assist Needed 1 Person Assist Discharge Recommendations PT Discharge Recommendations Home with Assistance,Home Health Transportation Needs at Discharge Private Vehicle
[2022-10-06] MEDS: AZITHROMYCIN 500 MG in DEXTROSE 5% IN WATER 250 ML 250 MG IV (17:31)
[2022-10-06] MEDS: cefTRIAXone 1,000 MG in SODIUM CHLORIDE 0.9% 100 ML 200 MG IV (17:31)
[2022-10-06] MEDS: POTASSIUM CHLORIDE 20 MEQ TAB 40 MEQ PO (17:31)
--- NOTE | 2022-10-06 17:41 | PM.PN.1 ---
Subjective Subjective Interval history: Patient now off O2. Still has some cough and wheezing. Feels like he needs one more day before going home. Exam Vital Signs (past 8 hours): - 10/06/22 10:47 10/06/22 13:17 10/06/22 16:46 Temperature 98 F 98 F Pulse Rate 80 72 77 Respiratory Rate 16 20 17 Blood Pressure 120/66 118/70 Pulse Oximetry 92 92 93 Oxygen Delivery Method Room Air Oxygen Flow Rate 1 0 0 Fraction of Inspired Oxygen 21 Fraction of Inspired Oxygen 21 SaO2/FiO2 Ratio 438 Oxygen Delivery Method Room Air Oxygen Flow Rate 0 Narrative Exam Narrative: GEN: Elderly male, Alert and oriented x3 HEENT: Normocephalic, face symmetric, pupils equal round reactive to light, extraocular movements intact, sclerae anicteric, conjunctiva clear, nares patent, oropharynx reveals an intact soft and hard palate with moist mucous membranes, dentition is fair NECK: Supple, no lymphadenopathy, thyroid without enlargement or nodularity, carotids no bruits CHEST: Diminished breath sounds, breath sounds improved with mild coarse sounds in RLL CV: Regular rhythm, no murmurs, rubs, gallops, PMI nondisplaced ABD: Soft, nontender, nondistended, bowel sounds present in all 4 quadrants, no organomegaly or masses appreciated EXTR: Warm, well perfused, no clubbing/cyanosis/edema SKIN: Warm and dry, without rash NEURO: Alert and oriented x3, grossly intact PSYCH: Mood and affect is within normal limits, judgment and insight are appropriate Objective Labs 10/06/22 04:19 10/06/22 04:19 Labs: Laboratory Results - last 24 hr 10/06/22 10/06/22 10/06/22 04:19 04:19 04:19 WBC 18.4 H RBC 3.67 L Hgb 11.1 L Hct 32.5 L MCV 88.7 MCH 30.3 MCHC 34.1 RDW 13.8 Plt Count 238 Neut % (Auto) 91.2 H Lymph % (Auto) 6.1 L [place] % (Auto) 2.6 L Eos % (Auto) 0.0 L Baso % (Auto) 0.1 Neut # (Auto) 10238 H Lymph # (Auto) 1100 [place] # (Auto) 500 Eos # (Auto) 0 Baso # (Auto) 0 Sodium 137 Potassium 3.5 Chloride 110 H Carbon Dioxide 20 L BUN 32 H Creatinine 1.20 Estimated GFR > 60 BUN/Creatinine Ratio 26.7 H Glucose 154 H Calcium 8.3 L Magnesium 2.5 H PFS Medical History COPD (chronic obstructive pulmonary disease) Social History household members: spouse Smoking Status: Former smoker Assessment & Plan Assessment & Plan narrative: 1. Acute hypoxic respiratory failure, improving Patient presented with room air saturations in the 70s. He subsequently improved with nebulizer treatments and supplemental oxygen. He is now stable on 2-3 L of oxygen with saturations in the mid 90s. Etiology is felt to be combination of pneumonia, known severe COPD and atrial fib with RVR. He was initiated on IV Levaquin. Will transition to Rocephin and azithromycin as he likely has a community-acquired pneumonia. With adequate rate control and converting back to sinus rhythm, he likely does not have any further contributor secondary to his arrhythmia. However, BNP was elevated, likely reflective of poor cardiac function when his heart rate was in the 180 range. Plan to continue nebulizer treatments. 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 2. Right lower lobe pneumonia and positive metapneumovirus, improving Likely he had metapneumovirus initially and now has sustained a superimposed right lower lobe bacterial community-acquired pneumonia. Procalcitonin is elevated, white blood cell count is also elevated and he has low-grade fevers. Continue Rocephin and azithromycin. No specific treatment for metapneumovirus accept for supportive care. Continue nebulizer treatments. 3. COPD Although he is not wheezing, he is tachypneic and appears to have some component of COPD exacerbation. Received Solu-Medrol and transitioning to po prednisone to finish 5 days. Continue nebulizer treatments with budesonide nebs. Titrate supp O2 to 88-92%. 4. Coronary artery disease Patient has had drug-eluting stents in an NSTEMI as recently as December of 2021. He does have a mildly elevated troponin at 0.057 on admission, which is likely demand ischemia related to initial elevated heart rates. Repeat trop lowered to 0.026His initial EKG revealed AFib with RVR. After converting to sinus rhythm follow-up EKG was obtained which revealed no ischemic changes. This is certainly reassuring. Continue his usual outpatient medications. It appears he takes ASA, Plavix, amlodipine, and losartan. He does not appear to be on a statin therapy. Unclear why. Start lipitor 40mg daily with ASA and plavix. 5. CKD 3 Creatinine on admission is 1.25. GFR is 59. Baseline creatinine is 1.3. This appears to be baseline. 6. Hypertension Typically on amlodipine and losartan on an outpatient basis. These have been held secondary to some hypotension here. 7. Hyperlipidemia Not presently on statin therapy. Uncertain why. This should be explored further as he is feeling better. 8. Reported obstructive sleep apnea Not on CPAP/BiPAP. Unclear how long ago this diagnosis was made. 9. Transaminitis May be secondary to acute infection or hepatic congestion related to his AFib and decreased cardiac output versus his known hepatic steatosis. Will follow. 10. GERD Does not appear to be on a PPI at baseline. Will monitor for symptoms. 11. Infrarenal abdominal aortic aneurysm measuring 4.5 x 4.[address] recent CT in 2021 He is followed by vascular surgery and reports they have no plans for surgical intervention until the aneurism increases in size. 12. Glaucoma Patient reports he uses latanoprost once daily but the other 2 glaucoma medications twice daily. These will be ordered and confirmed. 13. Paroxysmal AFib with RVR Patient reports no awareness of when he was in rapid AFib. His CHADS2 Vasc score is 4, equivalent with a 4.8% stroke risk annually. He would like to initiate anticoagulation. Started Eliquis with metoprolol tart low dose 12.5mg BID. Code status Full per patient Prophylaxis Eliquis Dispo: Home on 10/07. Time Spent With Patient Critical Care time: I spent a total of [] minutes of critical care time on this patient's care today; this time is exclusive of procedural time.
[2022-10-06] MEDS: LATANOPROST 0.005% OPHTH 2.5 ML 1 DROPS EYE-BOTH (21:09)
[2022-10-06] MEDS: CODEINE/GUAIFENESIN LIQUID 5ML UDC 5 ML PO (21:10)
[2022-10-06] MEDS: ATORVASTATIN 20 MG TABLET 40 MG PO (21:10)
[2022-10-06] MEDS: BENZONATATE 100 MG CAPSULE PO (21:10)
[2022-10-06] MEDS: ALBUTEROL 2.5 MG/3 ML NEB (ADULT) INH (21:10)
[2022-10-07] VITALS (10 sets, daily range): BP systolic 114–138; BP diastolic 64–79; PULSE 61–105; RESP 16–28; TEMP 36.1–37; O2SAT 90–98
[2022-10-07] MEDS: ALBUTEROL 2.5 MG/3 ML NEB (ADULT) INH ×5 (01:26→22:28)
[2022-10-07 05:06] LABS: Add Manual Diff / Slide Review NO; Basophils Absolute Auto 0 /uL (0-100); Basophils Percent Auto 0.2 % (0-2); Eosinophils Absolute Auto 0 /uL (0-450); Hematocrit 34.3 % (41-53); Hemoglobin 11.5 g/dL (13.5-17.5); Lymphocytes Absolute Auto 1600 /uL (1100-4500); Lymphocytes Percent Auto 9.5 % (25-40); Mean Corpuscular HGB Conc 33.6 % (30-36); Mean Corpuscular Hemoglobin 30.1 PG (26-34); Mean Corpuscular Volume 89.4 fL (80-100); Monocytes Absolute Auto 900 /uL (0-900); Neutrophils Absolute Auto 14600 /uL (1500-7000); Neutrophils Percent Auto 85.3 % (50-75); Platelet Count 272 X10^3/uL (150-400); Red Blood Cell Count 3.84 X10^6/uL (4.5-5.9); Red Cell Distribution Width 13.5 % (11.6-14.8); White Blood Cell Count 17.1 X10^3/uL (4.5-11.0)
[2022-10-07 05:10] LABS: BUN Creatinine Ratio 29.5 (6-22); Blood Urea Nitrogen 36 mg/dL (9-20); Calcium 8.5 mg/dL (8.4-10.2); Carbon Dioxide 20 mmol/L (22-32); Chloride 108 mmol/L (98-107); Estimated Glomerular Filt Rate > 60 mL/min (>60); Glucose 149 mg/dL (80-110); HEMOLYSIS < 15 (0-50); Potassium 3.5 mmol/L (3.4-5.1); Sodium 139 mmol/L (137-145)
[2022-10-07 05:11] LABS: Magnesium 2.4 mg/dL (1.6-2.3)
[2022-10-07] MEDS: PANTOPRAZOLE DR 40 MG TABLET PO (07:35)
[2022-10-07] MEDS: ALBUTEROL/IPRATROPIUM 3 ML AMPUL INH ×3 (07:53→19:35)
[2022-10-07] MEDS: BUDESONIDE 0.5 MG/2 ML NEB INH ×2 (07:53→19:35)
[2022-10-07] MEDS: ASPIRIN EC 81 MG TABLET PO (08:32)
[2022-10-07] MEDS: SODIUM CHLORIDE 0.9% FLUSH 10 ML IV ×2 (08:32→19:59)
[2022-10-07] MEDS: DORZOLAMIDE 2% OPHTH 10 ML 1 DROPS EYE-BOTH ×2 (08:32→13:49)
[2022-10-07] MEDS: BRIMONIDINE 0.2% OPHTH 5 ML 1 DROPS EYE-BOTH ×2 (08:32→14:00)
[2022-10-07] MEDS: predniSONE 20 MG TABLET 40 MG PO (08:32)
[2022-10-07] MEDS: APIXABAN 5 MG TABLET PO ×2 (08:32→20:57)
[2022-10-07] MEDS: METOPROLOL IR 25 MG TABLET 12.5 MG PO ×2 (08:32→20:57)
[2022-10-07] MEDS: CLOPIDOGREL 75 MG TABLET PO (08:32)
[2022-10-07] MEDS: POTASSIUM CHLORIDE 20 MEQ TAB 40 MEQ PO (09:15)
[2022-10-07] MEDS: methylPREDNISolone 125 MG/2 ML VIAL 60 MG IV (10:41)
--- NOTE | 2022-10-07 10:41 | DI.RAD.S_ITS ---
PROCEDURE: XR CHEST 1V INDICATIONS: worsened hypoxia TECHNIQUE: One view of the chest was acquired. COMPARISON: [facility], CR, XR CHEST 1V, 10/04/2022, 14:09. FINDINGS: Surgical changes and devices: None. Lungs and pleura: Lungs are clear. Emphysematous changes in bilateral lung stoll are seen. Left basilar linear scarring/atelectasis is seen. Right basilar atelectasis is also noted. No pleural effusions or pneumothorax. Mediastinum: Mediastinal contours appear normal. Heart size is normal. Bones and chest wall: No suspicious bony lesions. Overlying soft tissues appear unremarkable. IMPRESSION: COPD and bibasilar atelectasis. No definite focal infiltrate. No pleural effusion or pneumothorax. Dictated by: Mykel Degroot M.D. on 10/07/2022 at 11:20 Approved by: Mykel Degroot M.D. on 10/07/2022 at 11:23
--- NOTE | 2022-10-07 10:42 | P.PN_ITS ---
Subjective Subjective Interval history: Worsened hypoxia overnight and now back on 2L. Very wheezy on exam. Has c onversational dyspnea. Patient unsure why he got worse. CXR ordered and pending. Exam Vital Signs (past 8 hours): - 10/07/22 04:00 10/07/22 04:00 10/07/22 08:05 Temperature 97.1 F L Pulse Rate 79 61 Respiratory Rate 19 16 Blood Pressure 132/69 Pulse Oximetry 90 L 93 Oxygen Delivery Method Room Air Nasal Cannula Oxygen Flow Rate 2 2 10/07/22 08:00 10/07/22 08:00 10/07/22 07:00 Temperature 97.0 F L Pulse Rate 80 Respiratory Rate 18 Blood Pressure 125/79 Pulse Oximetry 92 92 Oxygen Delivery Method Nasal Cannula Nasal Cannula Oxygen Flow Rate 3 3 Fraction of Inspired Oxygen 21 SaO2/FiO2 Ratio 447 Oxygen Delivery Method Nasal Cannula Oxygen Flow Rate 2 Narrative Exam Narrative: GEN: Elderly male, Alert and oriented x3 HEENT: Normocephalic, face symmetric, pupils equal round reactive to light, extraocular movements intact, sclerae anicteric, conjunctiva clear, nares patent, oropharynx reveals an intact soft and hard palate with moist mucous membranes, dentition is fair NECK: Supple, no lymphadenopathy, thyroid without enlargement or nodularity, carotids no bruits CHEST: Diminished breath sounds, breath sounds improved with mild coarse sounds in RLL CV: Regular rhythm, no murmurs, rubs, gallops, PMI nondisplaced ABD: Soft, nontender, nondistended, bowel sounds present in all 4 quadrants, no organomegaly or masses appreciated EXTR: Warm, well perfused, no clubbing/cyanosis/edema SKIN: Warm and dry, without rash NEURO: Alert and oriented x3, grossly intact PSYCH: Mood and affect is within normal limits, judgment and insight are appropriate Objective Labs 10/07/22 04:25 10/07/22 04:25 Labs: Laboratory Results - last 24 hr 10/07/22 10/07/22 10/07/22 04:25 04:25 04:25 WBC 17.1 H RBC 3.84 L Hgb 11.5 L Hct 34.3 L MCV 89.4 MCH 30.1 MCHC 33.6 RDW 13.5 Plt Count 272 Neut % (Auto) 85.3 H Lymph % (Auto) 9.5 L [place] % (Auto) 5.0 Eos % (Auto) 0.0 L Baso % (Auto) 0.2 Neut # (Auto) 21764 H Lymph # (Auto) 1600 [place] # (Auto) 900 Eos # (Auto) 0 Baso # (Auto) 0 Sodium 139 Potassium 3.5 Chloride 108 H Carbon Dioxide 20 L BUN 36 H Creatinine 1.22 Estimated GFR > 60 BUN/Creatinine Ratio 29.5 H Glucose 149 H Calcium 8.5 Magnesium 2.4 H [facility] Medical History COPD (chronic obstructive pulmonary disease) Social History household members: spouse Smoking Status: Former smoker Assessment & Plan Assessment & Plan narrative: 1. Acute hypoxic respiratory failure, improving Patient presented with room air saturations in the 70s. He subsequently improved with nebulizer treatments and supplemental oxygen. He is now stable on 2-3 L of oxygen with saturations in the mid 90s. Etiology is felt to be combination of pneumonia, known severe COPD and atrial fib with RVR. He was initiated on IV Levaquin. Will transition to Rocephin and azithromycin as he likely has a community-acquired pneumonia. With adequate rate control and c onverting back to sinus rhythm, he likely does not have any further contributor secondary to his arrhythmia. However, BNP was elevated, likely reflective of poor cardiac function when his heart rate was in the 180 range. Plan to continue nebulizer treatments. 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 2. Right lower lobe pneumonia and positive metapneumovirus, improving Likely he had metapneumovirus initially and now has sustained a superimposed right lower lobe bacterial community-acquired pneumonia. Procalcitonin is elevated, white blood cell count is also elevated and he has low-grade fevers. Continue Rocephin and azithromycin. No specific treatment for metapneumovirus accept for supportive care. Continue nebulizer treatments. 3. COPD Wheezes on exam. Received Solu-Medrol and transitioning to po prednisone to finish 5 days. Continue nebulizer treatments with budesonide nebs. Titrate supp O2 to 88-92%. 4. Coronary artery disease Patient has had drug-eluting stents in an NSTEMI as recently as December of 2021. He does have a mildly elevated troponin at 0.057 on admission, which is likely demand ischemia related to initial elevated heart rates. Repeat trop lowered to 0.026His initial EKG revealed AFib with RVR. After converting to sinus rhythm follow-up EKG was obtained which revealed no ischemic changes. This is certainly reassuring. Continue his usual outpatient medications. It appears he takes ASA, Plavix, amlodipine, and losartan. He does not appear to be on a statin therapy. Unclear why. Start lipitor 40mg daily with ASA and plavix. 5. CKD 3 Creatinine on admission is 1.25. GFR is 59. Baseline creatinine is 1.3. This appears to be baseline. 6. Hypertension Typically on amlodipine and losartan on an outpatient basis. These have been held secondary to some hypotension here. 7. Hyperlipidemia Not presently on statin therapy. Uncertain why. This should be explored further as he is feeling better. 8. Reported obstructive sleep apnea Not on CPAP/BiPAP. Unclear how long ago this diagnosis was made. 9. Transaminitis May be secondary to acute infection or hepatic congestion related to his AFib and decreased cardiac output versus his known hepatic steatosis. Will follow. 10. GERD Does not appear to be on a PPI at baseline. Will monitor for symptoms. 11. Infrarenal abdominal aortic aneurysm measuring 4.5 x 4.[address] most recent CT in 2021 He is followed by vascular surgery and reports they have no plans for surgical intervention until the aneurism increases in size. 12. Glaucoma Patient reports he uses latanoprost once daily but the other 2 glaucoma medications twice daily. These will be ordered and confirmed. 13. Paroxysmal AFib with RVR Patient reports no awareness of when he was in rapid AFib. His CHADS2 Vasc score is 4, equivalent with a 4.8% stroke risk annually. He would like to initiate anticoagulation. Started Eliquis with metoprolol tart low dose 12.5mg BID. Code status Full per patient Prophylaxis Eliquis Dispo: Home on 10/07. Time Spent With Patient Critical Care time: I spent a total of [] minutes of critical care time on this patient's care today; this time is exclusive of procedural time.
--- NOTE | 2022-10-07 10:50 | PT.IPTN ---
Current Diagnoses Acute respiratory failure with hypoxia (10/04/22) Physical Therapy Treatment Note M2 PT-IP Current Condition Start: 10/05/22 08:44 Freq: NEEDED Status: Active Protocol: Document 10/05/22 11:32 AW (Rec: 10/05/22 13:07 AW [id number]) Physical Therapy Current Condition Current Condition Evaluation Date 10/05/22 Treatment Diagnosis PNA secondary to metapneumovirus; impaired mobility Onset Date 1 week M3 PT-IP Subjective Start: 10/05/22 08:44 Freq: NEEDED Status: Active Protocol: Document 10/07/22 12:27 TS (Rec: 10/07/22 13:03 TS [id number]) Subjective Physical Therapy Visit Type Type Treatment Note Visit Start Time 10:50 Visit Stop Time 11:25 Total Visit Minutes 35 Notes Spo2: 91% 2.5L at rest, 89% 4L after stairs, 92% 4.5L after ambulation, 3L supine 91 Number of REAL ESTATE MANAGER Visits 2 Physical Therapy Visit Comments Patient Comments Pt reports his respiratory issues increased in the evening and he is back on O2, is agreeable to PT session. Patient Goals Return home with family support. M4 PT-IP Mobility and Gait Start: 10/05/22 08:44 Freq: NEEDED Status: Active Protocol: Document 10/07/22 12:27 TS (Rec: 10/07/22 13:03 TS [id number]) PT-Bed Mobility Assessment Supine to Sit Supine to Sit Standby Assistance Sit to Supine Sit to Supine Standby Assistance Scooting Scooting to Edge of Bed Standby Assistance Scooting Up and Down in Bed Standby Assistance PT-Transfer Assessment Sit to and From Stand Sit to and from Stand Standby Assistance Equipment Transfer Assistive Device None,Gait Belt,Front Wheeled Walker Comments Mobility Comments Pt found resting in bed, on 2. 5L of O2 91%, agreeable to PT session. He performed supine to sit SBA with BUE support on bed and at a slower pace this session. He performed sit to stand x1 SBA w/FWW and BUE support on bed to come into standing. He performed stairs x2 with FWW and CGA intially, progressed to SBA with no AD x4 but required x1 Hunter for loss of balance descending step. He then required a ~5min rest break standing next to bed, increased O2 to 4L Spo2 89%. He ambulated 2x15' with FWW demonstrating a narrow EDIE gait and some swaying. He again required a ~3 min rest break and increase in O2 to 4. 5L to recover Spo2 92%. He performed sit to supine SBA and decreased 3L of O2 (Spo2 91%). Pt left in bed with call light nearby, RN notified of O2 levels. Gait Assessment Gait Gait Assistance Required: Standby Assistance Distance (Feet) 30 Assistive Devices Assistive Device Gait Belt,Straight Cane,Front Wheeled Walker Gait Deviations General Gait Pattern Antalgic,Decreased Stride Length,Decreased Feet Clearance,Flexed Trunk,Narrow Based Gait Factors Limiting Gait Function Factors Limiting Gait Function Decreased Activity Tolerance, Poor Balance,Poor Safety Awareness,Respiratory Distress Comments Gait Comments Pt ambulates with a narrow EDIE and some swaying FWW. He ambulated 2x15' and required increase in O2 to 4.5L to from SOB. Stair Climbing Assessment Evaluation Level of Assist On Stairs Standby Assistance,Contact Guard Assistance,Minimal Assistance Devices Stair Climbing Assistive Devices None,Front Wheel Walker Technique/Endurance Stair Climbing Direction Ascend and Descend Stair Climbing Technique Step to Step Number of Steps Climbed 6 Comments Stair Climbing Comments See mobility comments above. PT-Balance Assessment Sitting Balance and Reactions Static Sitting Balance Ability Normal Dynamic Sitting Balance Ability Good Standing Balance and Reactions Static Standing Balance Ability Fair Dynamic Standing Balance Ability Poor Device Used FWW M5 PT-IP Objective Assessments Start: 10/05/22 08:44 Freq: NEEDED Status: Active Protocol: Document 10/05/22 11:32 AW (Rec: 10/05/22 13:07 AW [id number]) Orientation Orientation/Cognition Level of Alertness Alert Orientation Name,Day of Week,Place, Situation Safety Awareness Decreased Safety Awareness Gross Range of Motion Upper Extremity ROM Assessment Within Functional Limits Lower Extremity ROM Assessment Within Functional Limits Strength Upper Extremity Strength Assessment Within Functional Limits Lower Extremity Strength Assessment Within Functional Limits Comments Strength Comments BLE grossly 5/5 on MMT but functionally requires CGA with positive episodes of RLE buckling. Sensation Assessment Sensation Gross Sensation WNL M6 PT-IP Treatment Start: 10/05/22 08:44 Freq: NEEDED Status: Active Protocol: Document 10/07/22 12:27 TS (Rec: 10/07/22 13:03 TS [id number]) Physical Therapy Treatment Education Education Provided Safety Other Treatments Other Treatment Performed Pt reports not wanting to use an AD but understands why he needs to at this time. M7 PT-IP Assessment and Plan Start: 10/05/22 08:44 Freq: NEEDED Status: Active Protocol: Document 10/07/22 12:27 TS (Rec: 10/07/22 13:03 TS [id number]) PT Summary Assessment and Plan Potential Rehabilitation Potential Good Status of Condition at Evaluation Evolving Summary Impairments Pain,Strength,Balance, Transfers,Gait,Activity Tolerance Assessment Summary Pt continues to be SBA for bed mobility, sit to stands and ambulation. He continues to demonstrate a narrow EDIE and some swaying during ambulation making him a falls risk. Attempted stairs for the first time today and he progressed from CGA with FWW to no AD/SBA . Had x1 loss of balance when descending step requring Hunter for recovery. PT continues to recommend home with assist and HHPT to improve balance and stair training. Goals Bed Mobility Goal Independent Transfer Goal Independent,Front Wheeled Walker Gait Goal Independent,Front Wheel Walker Gait Distance 200 Other Goals - up/down 6 steps with L rail ascending SBA - improve gait and transfers to IND without AD Days to Meet Goals 5 Frequency of Treatment Frequency Of Treatment Once a Day Treatment Plan Physical Therapy Treatment Plan Bed Mobility Training,Transfer Training,Gait Training, Therapeutic Exercise,Balance Retraining,Discharge Planning, Hot or Cold Pack,Neuromuscular Re-ed Precautions Other Precautions O2 sats Recommendations To Nursing Amount of Assist Needed Total Assistance Discharge Recommendations PT Discharge Recommendations Home with Assistance,Home Health Transportation Needs at Discharge Private Vehicle
--- NOTE | 2022-10-07 14:23 | OT.IPNOTE ---
Pt states too tired to get up for OT and just talking pt O2 on 2L and from 88-91%. Still encouraged pt to get a shower chair for the showers. To check on the pt tomorrow. Pt states has not had a bowel movement since 10/04, but does not want any interventions but agreed to have yogurt. NO charge
--- NOTE | 2022-10-07 15:20 | CM.DPC ---
DCP Cont: Patient was back on 2 liters of oxygen, hospitalist was planning on chest xray. Patient has been working with the therapy team. Patient resides in [place] with spouse, Tiffany. Patient is active, and independent at his baseline. P: DCP to continue to follow for any needs. Patient should be able to go home when deemed medically stable. Urvashi Valladares RN/Sole Inker
[2022-10-07] MEDS: cefTRIAXone 1,000 MG in SODIUM CHLORIDE 0.9% 100 ML 200 MG IV (18:11)
[2022-10-07] MEDS: LATANOPROST 0.005% OPHTH 2.5 ML 1 DROPS EYE-BOTH (19:59)
[2022-10-07] MEDS: ATORVASTATIN 20 MG TABLET 40 MG PO (20:57)
[2022-10-08] VITALS (16 sets, daily range): BP systolic 141–159; BP diastolic 74–87; PULSE 60–93; RESP 18–24; TEMP 36.2–36.6; O2SAT 90–95
[2022-10-08] MEDS: ALBUTEROL 2.5 MG/3 ML NEB (ADULT) INH ×4 (00:23→22:26)
[2022-10-08 04:48] LABS: BUN Creatinine Ratio 26.8 (6-22); Blood Urea Nitrogen 26 mg/dL (9-20); Calcium 8.5 mg/dL (8.4-10.2); Carbon Dioxide 21 mmol/L (22-32); Chloride 109 mmol/L (98-107); Estimated Glomerular Filt Rate > 60 mL/min (>60); Glucose 182 mg/dL (80-110); HEMOLYSIS < 15 (0-50); Magnesium 2.2 mg/dL (1.6-2.3); Potassium 4.1 mmol/L (3.4-5.1); Sodium 139 mmol/L (137-145)
[2022-10-08 04:50] LABS: Add Manual Diff / Slide Review YES; Hematocrit 34.1 % (41-53); Hemoglobin 11.4 g/dL (13.5-17.5); Mean Corpuscular HGB Conc 33.6 % (30-36); Mean Corpuscular Volume 89.3 fL (80-100); Platelet Count 283 X10^3/uL (150-400); Red Blood Cell Count 3.82 X10^6/uL (4.5-5.9); Red Cell Distribution Width 14.1 % (11.6-14.8); White Blood Cell Count 14.8 X10^3/uL (4.5-11.0)
[2022-10-08] MEDS: BUDESONIDE 0.5 MG/2 ML NEB INH ×2 (07:13→19:20)
[2022-10-08] MEDS: ALBUTEROL/IPRATROPIUM 3 ML AMPUL INH ×3 (07:14→19:20)
[2022-10-08 07:28] LABS: Neutrophils Absolute Manual 11396 /uL (3000-5900); RBC Morphology Normal Morphology; Total Cells Counted 100
--- NOTE | 2022-10-08 07:59 | PM.PN.1 ---
Subjective Subjective Interval history: Still short and wheezy. He has a lot of chest congestion. He denies chest pain or constipation. Exam Vital Signs (past 8 hours): - 10/08/22 00:00 10/08/22 00:00 10/08/22 00:23 Temperature 97.8 F Pulse Rate 75 85 Respiratory Rate 20 24 Blood Pressure 143/79 H Pulse Oximetry 94 92 92 Oxygen Delivery Method Nasal Cannula Nasal Cannula Oxygen Flow Rate 3 2.5 2.5 Fraction of Inspired Oxygen 30 10/08/22 02:20 10/08/22 04:00 10/08/22 04:00 Temperature 97.5 F L Pulse Rate 81 90 Respiratory Rate 22 23 Blood Pressure 159/87 H Pulse Oximetry 93 93 91 Oxygen Delivery Method Nasal Cannula Nasal Cannula Oxygen Flow Rate 3 3 3 Fraction of Inspired Oxygen 32 10/08/22 04:22 10/08/22 07:14 Temperature Pulse Rate 60 72 Respiratory Rate 20 18 Blood Pressure Pulse Oximetry 91 91 Oxygen Delivery Method Nasal Cannula Nasal Cannula Oxygen Flow Rate 3 3 Fraction of Inspired Oxygen 32 32 Fraction of Inspired Oxygen 32 SaO2/FiO2 Ratio 284 Oxygen Delivery Method Nasal Cannula Oxygen Flow Rate 3 Narrative Exam Narrative: GEN: Elderly male, Alert and oriented x3. No distress. HEENT: Normocephalic, face symmetric NECK: Supple, no lymphadenopathy, thyroid without enlargement or nodularity, carotids no bruits CHEST: Diminished breath sounds, breath sounds improved with expiratory wheezes heard in all areas CV: Regular rhythm, no murmurs, rubs, gallops, PMI nondisplaced ABD: Soft, nontender, nondistended, bowel sounds present, no organomegaly or masses appreciated EXTR: Warm, well perfused, no clubbing/cyanosis/edema SKIN: Warm and dry, without rash NEURO: Alert and oriented x3, grossly intact PSYCH: Mood and affect is within normal limits, judgment and insight are appropriate, speech is normal. Objective Labs 10/08/22 04:19 10/08/22 04:19 Labs: Laboratory Results - last 24 hr 10/08/22 10/08/22 10/08/22 04:19 04:19 04:19 WBC 14.8 H RBC 3.82 L Hgb 11.4 L Hct 34.1 L MCV 89.3 MCH 30.0 MCHC 33.6 RDW 14.1 Plt Count 283 Neut % (Auto) Not Reportable Lymph % (Auto) Not Reportable [place] % (Auto) Not Reportable Eos % (Auto) Not Reportable Baso % (Auto) Not Reportable Lymph # (Auto) Not Reportable [place] # (Auto) Not Reportable Baso # (Auto) Not Reportable Total Counted 100 Seg Neutrophils % 76.0 H Band Neutrophils % 1.0 L Lymphocytes % (Manual) 10.0 L Atypical Lymphs % 3.0 H Monocytes % (Manual) 10.0 Neutrophils # (Manual) 63598 H RBC Morphology Normal morphology Sodium 139 Potassium 4.1 Chloride 109 H Carbon Dioxide 21 L BUN 26 H Creatinine 0.97 Estimated GFR > 60 BUN/Creatinine Ratio 26.8 H Glucose 182 H Calcium 8.5 Magnesium 2.2 PFSH Medical History COPD (chronic obstructive pulmonary disease) Social History household members: spouse Smoking Status: Former smoker Assessment & Plan Assessment & Plan narrative: 1. Acute hypoxic respiratory failure, improving -Plan to continue nebulizer treatments. 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 -continue steroids. 2. Right lower lobe pneumonia and positive metapneumovirus, improving Likely he had metapneumovirus initially and now has sustained a superimposed right lower lobe bacterial community-acquired pneumonia. Procalcitonin is elevated, white blood cell count is also elevated and he has low-grade fevers. Continue Rocephin and azithromycin. A 3-5 day course of antibiotics. 3. COPD exacerbation, present on admission and active. Wheezes on exam. Received Solu-Medrol and transitioning to po prednisone to finish 5 days. Continue nebulizer treatments with budesonide nebs. Titrate supp O2 to 88-92%. 4. Coronary artery disease, present on admission and stable. Patient has had drug-eluting stents in an NSTEMI as recently as December of 2021. He does have a mildly elevated troponin at 0.057 on admission, which is likely demand ischemia related to initial elevated heart rates. Repeat trop lowered to 0.026His initial EKG revealed AFib with RVR. After converting to sinus rhythm follow-up EKG was obtained which revealed no ischemic changes. This is certainly reassuring. Continue his usual outpatient medications. It appears he takes ASA, Plavix, amlodipine, and losartan. He does not appear to be on a statin therapy. Unclear why. Start lipitor 40mg daily with ASA and plavix. 5. CKD 3, present on admission and stable. Creatinine on admission is 1.25. GFR is 59. Baseline creatinine is 1.3. This appears to be baseline. 6. Hypertension, present on admission and stable. Typically on amlodipine and losartan on an outpatient basis. These have been held secondary to some hypotension here. 7. Hyperlipidemia, present on admission and stable. Not presently on statin therapy. Uncertain why. This should be explored further as he is feeling better. 8. Reported obstructive sleep apnea, present on admission and stable. Not on CPAP/BiPAP. Unclear how long ago this diagnosis was made. 9. Transaminitis, present on admission and active May be secondary to acute infection or hepatic congestion related to his AFib and decreased cardiac output versus his known hepatic steatosis. Will follow. 10. GERD, present on admission and stable. Does not appear to be on a PPI at baseline. Will monitor for symptoms. 11. Infrarenal abdominal aortic aneurysm measuring 4.5 x 4.[address] in 2021, present on admission and stable. He is followed by vascular surgery and reports they have no plans for surgical intervention until the aneurism increases in size. 12. Glaucoma, present on admission and stable. Patient reports he uses latanoprost once daily but the other 2 glaucoma medications twice daily. These will be ordered and confirmed. 13. Paroxysmal AFib with RVR, present on admission and improved Patient reports no awareness of when he was in rapid AFib. His CHADS2 Vasc score is 4, equivalent with a 4.8% stroke risk annually. He would like to initiate anticoagulation. Started Eliquis with metoprolol tart low dose 12.5mg BID. Code status Full per patient Prophylaxis Eliquis Dispo: Home on 10/09 if he continues to improve.
[2022-10-08] MEDS: PANTOPRAZOLE DR 40 MG TABLET PO (08:21)
[2022-10-08] MEDS: METOPROLOL IR 25 MG TABLET 12.5 MG PO ×2 (08:22→21:05)
[2022-10-08] MEDS: predniSONE 20 MG TABLET 40 MG PO (08:22)
[2022-10-08] MEDS: BRIMONIDINE 0.2% OPHTH 5 ML 1 DROPS EYE-BOTH ×2 (08:22→13:12)
[2022-10-08] MEDS: DORZOLAMIDE 2% OPHTH 10 ML 1 DROPS EYE-BOTH ×2 (08:22→13:12)
[2022-10-08] MEDS: CLOPIDOGREL 75 MG TABLET PO (08:22)
[2022-10-08] MEDS: APIXABAN 5 MG TABLET PO ×2 (08:22→21:05)
[2022-10-08] MEDS: ASPIRIN EC 81 MG TABLET PO (08:22)
[2022-10-08] MEDS: SODIUM CHLORIDE 0.9% FLUSH 10 ML IV ×2 (08:24→21:05)
--- NOTE | 2022-10-08 10:08 | OT.IPNOTE ---
Pt not wanting to get up at this time. Pt on 3L of O2 and at 89-93% when talking to the OT. Trial when O2 on RA dropped to 88% within 30seconds and several minutes to recover to 90%. Pt states he would like to go home and aware to do energy conservation strategies and take his time at home. Pt states to use a cane/walking stick versus FWW. No charge
--- NOTE | 2022-10-08 11:00 | CM.DPC ---
Addendum entered by Kaylah Mendiola R.N. 10/08/22 11:35: Patient still very short of breath when talking to CM de-sated into the mid 80s while on 3 L of O2. patients nurse notified and Cm spoke with MD about patients oxygen status. Patient and MD agreed to keep patient another night. RT is working on getting Home O2 set up for the patient to DC home with tomorrow. Cm spoke with the patient about HH services at Discharge and he was in agreement that he could use PT and OT at home while he is recovering. Patient showed Ipad ratings of HH options and chose [facility]. CM called [facility] [phone] and let them know I was sending a HH referral to them. CM was told they can open with the patient on Wednesday or Wednesday next week. since patient is DC until tomorrow or Wednesday then Wednesday is a good day to open with HH. CM political science research assistant to fax clinicals and signed F2F to [facility]. CM team will continue to follow to help with any DC planning needs that may arise. Kaylah Mendiola RNstudio operation engineer Original Note: DCP Continued: CM spoke with Dr. Crystal in morning rounds, he ordered HOme O2 eval on this patient. CM called Respiratory therapy who stated they will come up in the next hour to start working on HOme o2 eval. cm updated Hospitalist. DC plan is home with spouse and potentially home O2. Cm will continue to follow to support with any new DC planning needs that may arise prior to DC home. Kaylah Mendiola RN Case Manger
--- NOTE | 2022-10-08 11:08 | PT.IPTN ---
Current Diagnoses Acute respiratory failure with hypoxia (10/04/22) Physical Therapy Treatment Note M2 PT-IP Current Condition Start: 10/05/22 08:44 Freq: NEEDED Status: Active Protocol: Document 10/05/22 11:32 AW (Rec: 10/05/22 13:07 AW [id number]) Physical Therapy Current Condition Current Condition Evaluation Date 10/05/22 Treatment Diagnosis PNA secondary to metapneumovirus; impaired mobility Onset Date 1 week M3 PT-IP Subjective Start: 10/05/22 08:44 Freq: NEEDED Status: Active Protocol: Document 10/08/22 10:40 KS (Rec: 10/08/22 15:01 KS [id number]) Subjective Physical Therapy Visit Type Type Treatment Note Visit Start Time 10:40 Visit Stop Time 11:08 Total Visit Minutes 28 Notes Pt on 3L O2 upon arrival, desat to mid 80s and raised to 4L for mobility. maintained ~ 88% Number of STORE SHOPPER Visits 3 Physical Therapy Visit Comments Patient Comments Pt still c/o SOB. Patient Goals Return home with HHPT. M4 PT-IP Mobility and Gait Start: 10/05/22 08:44 Freq: NEEDED Status: Active Protocol: Document 10/08/22 10:40 KS (Rec: 10/08/22 15:01 KS [id number]) PT-Bed Mobility Assessment Supine to Sit Supine to Sit Standby Assistance Sit to Supine Sit to Supine Standby Assistance Scooting Scooting to Edge of Bed Standby Assistance PT-Transfer Assessment Sit to and From Stand Sit to and from Stand Contact Guard Assistance Equipment Transfer Assistive Device None,Gait Belt,Front Wheeled Walker Transfer Ability Level of Assist Contact Guard Assistance,1 Person Assistance,Use of Upper Extremities Comments Mobility Comments Pt in bed upon arrival on 3L O2 ~92%. Agreeable to mobilize . SBA for sup<>sit and scooting EOB. Pt desat to 88% while sitting EOB. CGA for sit <>stand w/ FWW. Pt performed ~ [address] and desat to 85% and let go of FWW stating he doesnt need it and lost balance needing Min A to recover. Increased o2 to 4L and pt ambulated ~10 ft w/ FWW and became very short of breath but maintained ~88%. Pt sat EOB and O2 increased to 91% in 2 min. Pt reported fatigue and returned to sup SBA. Left in bed w/ all needs in reach and alarm on. Agreeable to FWW for home use and HHPT. Gait Assessment Gait Gait Assistance Required: Contact Guard Assist Distance (Feet) 10 Assistive Devices Assistive Device Gait Belt,Straight Cane,Front Wheeled Walker Gait Deviations General Gait Pattern Antalgic,Decreased Stride Length,Decreased Feet Clearance,Flexed Trunk,Narrow Based Gait Factors Limiting Gait Function Factors Limiting Gait Function Decreased Activity Tolerance, Poor Balance,Poor Safety Awareness,Respiratory Distress Comments Gait Comments Pt unsteady w/ FWW due to weakness, poor balance, and SOB. Only ambulated 10 ft. PT-Balance Assessment Sitting Balance and Reactions Static Sitting Balance Ability Normal Dynamic Sitting Balance Ability Good Standing Balance and Reactions Static Standing Balance Ability Fair Dynamic Standing Balance Ability Poor Device Used FWW M5 PT-IP Objective Assessments Start: 10/05/22 08:44 Freq: NEEDED Status: Active Protocol: Document 10/05/22 11:32 AW (Rec: 10/05/22 13:07 AW [id number]) Orientation Orientation/Cognition Level of Alertness Alert Orientation Name,Day of Week,Place, Situation Safety Awareness Decreased Safety Awareness Gross Range of Motion Upper Extremity ROM Assessment Within Functional Limits Lower Extremity ROM Assessment Within Functional Limits Strength Upper Extremity Strength Assessment Within Functional Limits Lower Extremity Strength Assessment Within Functional Limits Comments Strength Comments BLE grossly 5/5 on MMT but functionally requires CGA with positive episodes of RLE buckling. Sensation Assessment Sensation Gross Sensation WNL M6 PT-IP Treatment Start: 10/05/22 08:44 Freq: NEEDED Status: Active Protocol: Document 10/08/22 10:40 KS (Rec: 10/08/22 15:01 KS [id number]) Physical Therapy Treatment Education Education Provided Safety Other Treatments Other Treatment Performed Disucssed HHPT and at home safety. M7 PT-IP Assessment and Plan Start: 10/05/22 08:44 Freq: NEEDED Status: Active Protocol: Document 10/08/22 10:40 KS (Rec: 10/08/22 15:01 KS [id number]) PT Summary Assessment and Plan Potential Rehabilitation Potential Good Summary Impairments Pain,Strength,Balance, Transfers,Gait,Activity Tolerance Progress Towards Goals Slow Progress due to Activity Tolerance Assessment Summary Pt SBA for bed mobility, CGA for sit<>stand. Very low tolerance for activity and quickly beocme SOB desat to mid 80s on 3L. LOB while marching in place when he let go of FWW. Pt is agreeable and will need FWW for home use and HHPT to improve activity tolerance and balance. Goals Bed Mobility Goal Independent Transfer Goal Independent,Front Wheeled Walker Gait Goal Independent,Front Wheel Walker Gait Distance 200 Other Goals - up/down 6 steps with L rail ascending SBA - improve gait and transfers to IND without AD Days to Meet Goals 5 Frequency of Treatment Frequency Of Treatment Once a Day Treatment Plan Physical Therapy Treatment Plan Bed Mobility Training,Transfer Training,Gait Training, Therapeutic Exercise,Balance Retraining,Discharge Planning, Hot or Cold Pack,Neuromuscular Re-ed Precautions Other Precautions O2 sats Recommendations To Nursing Amount of Assist Needed 1 Person Assist Discharge Recommendations PT Discharge Recommendations Home with Assistance,Home Health Transportation Needs at Discharge Private Vehicle
--- NOTE | 2022-10-08 13:40 | OT.IP.TRT ---
Current Diagnoses Acute respiratory failure with hypoxia (10/04/22) Occupational Therapy Treatment Note M2 OT-IP Current Condition Start: 10/05/22 12:44 Freq: Status: Active Protocol: Document 10/05/22 11:02 [facility] (Rec: 10/05/22 13:05 [facility] [id number]) Occupational Therapy Current Condition Current Condition Evaluation Date 10/05/22 Treatment Diagnosis Acute hypoxic respiratory failure Diagnosis Onset Date 10/04/22 M3 OT- IP Subjective and Pain Start: 10/05/22 12:44 Freq: Status: Active Protocol: Document 10/08/22 13:41 [facility] (Rec: 10/08/22 13:46 [facility] [id number]) OT- Subjective Occupational Therapy Visit Type Type Treatment Note Visit Start Time 13:28 Visit Stop Time 13:40 Total Visit Minutes 12 Occupational Therapy Visit Comments Patient Comments Pt agreeing to have a FWW and able to issue to the pt. pt also agreed to go [facility] for home. Patient/Caregiver Goals TO go home. M4 OT- IP ADL's Start: 10/05/22 12:44 Freq: Status: Active Protocol: Document 10/06/22 10:35 [facility] (Rec: 10/06/22 11:30 [facility] [id number]) OT CUN-Gfdx-Gymxynn General Evaluation Self-Feeding Ability Independent OT ADL-Dressing General Eval Lower Body Dressing Ability Independent OT ADL-Toileting Comments OT Toileting Comments Pt states wanting to use the urinal but ended up not needing to go. OT ADL-Bathing Comments OT Bathing Comments Pt will definitely benefit from a shower chair at home. M5 OT- IP IADL's Start: 10/05/22 12:44 Freq: Status: Active Protocol: Document 10/05/22 11:02 [facility] (Rec: 10/05/22 13:05 [facility] [id number]) OT-Instrumental Activities of Daily Living Deficits IADL Deficits Identified Deficits Home Safety Awareness Awareness of Need for Assistance at Home Good Awareness Home Safety Comments Pt is aware that he will need assist for needs especialy for IADl needs. M6 OT- IP Functional Cognition Start: 10/05/22 12:44 Freq: Status: Active Protocol: Document 10/06/22 10:35 [facility] (Rec: 10/06/22 11:30 [facility] [id number]) Cognitive Factors Limiting Selfcare Function Cognitive Ability Safety Awareness Underestimates Need for Assistance Cognitive Comments Cognitive Assessment Comments Pt insistent on not having any devices and states will do so if he sees it is needed. M7 OT- IP Mobility and Balance Start: 10/05/22 12:44 Freq: Status: Active Protocol: Document 10/06/22 10:35 [facility] (Rec: 10/06/22 11:30 [facility] [id number]) OT- Bed Mobility Assessment Supine to Sit Supine to Sit Assist Standby Assistance Sit to Supine Sit to Supine Assist Standby Assistance OT-Transfer Assessment Sit to and From Stand Sit to and from Stand Standby Assistance Transfers Transfer Ability Contact Guard Assistance, Minimal Assistance Technique Transfer Destination Bed Transfer Technique Stand Step Pivot Devices Transfer Assistive Devices None,Gait Belt Comments Mobility Comments Pt now on RA 93% and after walking to the sink dropped to 86% and needing 2-3 minutes to recover to 90%. Pt needing CGA to JOSÉ MIGUEL for his balance as still a bit unsteady on his feet. Pt insistent on not using any devices and that he will just hold onto surfaces at home. OT- Balance Assessment Sitting Balance and Reactions Static Sitting Balance Ability Good Dynamic Sitting Balance Ability Fair Standing Balance and Reactions Static Standing Balance Ability Fair Dynamic Standing Balance Ability Poor M8 OT- IP Objective Assessments Start: 10/05/22 12:44 Freq: Status: Active Protocol: Document 10/05/22 11:02 [facility] (Rec: 10/05/22 13:05 [facility] [id number]) OT Gross Range of Motion Upper Extremity Range of Motion Assessment Right Impaired ROM Impairments Decreased at end ROM , pt's gown also impeding his movements. OT Strength Comments Strength Comments RUE 4/5, LUE 4+/5 M9 OT- IP Assessment and Plan Start: 10/05/22 12:44 Freq: Status: Active Protocol: Document 10/08/22 13:41 [facility] (Rec: 10/08/22 13:46 [facility] [id number]) OT Summary Assessment and Plan Potential Rehabilitation Potential Good Analytic Complexity at Evaluation Moderate Summary Progress Towards Goals Slow Progress due to Medical Issues,Slow Progress due to Activity Tolerance Assessment Summary Pt still O2 on 3L and drops while talking to 89% and otherwise after a few deep breaths increases to 93%. Pt states realized when he got up with HEATER OPERATOR earlier and was unsteady that he wanted to get a FWW. Able to go over energy conservation strategies with the pt. Pt to go home with home health when medically stable. Goals Grooming Goal Independent Dressing Goal Independent Toileting Goal Independent Bathing Goal Independent Shower Transfer Goal Independent Days to Meet Goals 5 Frequency of Treatment Frequency Of Treatment Once a Day Treatment Plan OT Treatment Plan ADL Training,Functional Mobility,Patient/Family Education,Discharge Planning Other Treatment Recommendations and Next Stand at the sink for ADL Treatment Focus needs. Discharge Recommendations OT Discharge Recommendations Home with Assistance,Home Health Home Equipment Needs shower chair, fww Transportation Needs at Discharge Private Vehicle
[2022-10-08] MEDS: cefTRIAXone 1,000 MG in SODIUM CHLORIDE 0.9% 100 ML 200 MG IV (18:44)
[2022-10-08] MEDS: LATANOPROST 0.005% OPHTH 2.5 ML 1 DROPS EYE-BOTH (21:05)
[2022-10-08] MEDS: ATORVASTATIN 20 MG TABLET 40 MG PO (21:05)
[2022-10-09] VITALS (10 sets, daily range): BP systolic 128–157; BP diastolic 70–93; PULSE 66–94; RESP 19–24; TEMP 36.2–36.6; O2SAT 90–98
[2022-10-09] MEDS: ALBUTEROL 2.5 MG/3 ML NEB (ADULT) INH (02:28)
[2022-10-09] MEDS: ALBUTEROL/IPRATROPIUM 3 ML AMPUL INH ×2 (06:00→14:33)
[2022-10-09] MEDS: PANTOPRAZOLE DR 40 MG TABLET PO (07:00)
[2022-10-09] MEDS: BUDESONIDE 0.5 MG/2 ML NEB INH (08:02)
[2022-10-09] MEDS: APIXABAN 5 MG TABLET PO (08:24)
[2022-10-09] MEDS: METOPROLOL IR 25 MG TABLET 12.5 MG PO (08:24)
[2022-10-09] MEDS: CLOPIDOGREL 75 MG TABLET PO (08:25)
[2022-10-09] MEDS: ASPIRIN EC 81 MG TABLET PO (08:25)
[2022-10-09] MEDS: DORZOLAMIDE 2% OPHTH 10 ML 1 DROPS EYE-BOTH ×2 (08:26→14:50)
[2022-10-09] MEDS: BRIMONIDINE 0.2% OPHTH 5 ML 1 DROPS EYE-BOTH ×2 (08:26→14:50)
[2022-10-09] MEDS: SODIUM CHLORIDE 0.9% FLUSH 10 ML IV (08:27)
--- NOTE | 2022-10-09 10:15 | PT.IPTN ---
Current Diagnoses Acute respiratory failure with hypoxia (10/04/22) Physical Therapy Treatment Note M2 PT-IP Current Condition Start: 10/05/22 08:44 Freq: NEEDED Status: Active Protocol: Document 10/05/22 11:32 AW (Rec: 10/05/22 13:07 AW [id number]) Physical Therapy Current Condition Current Condition Evaluation Date 10/05/22 Treatment Diagnosis PNA secondary to metapneumovirus; impaired mobility Onset Date 1 week M3 PT-IP Subjective Start: 10/05/22 08:44 Freq: NEEDED Status: Active Protocol: Document 10/09/22 10:57 TS (Rec: 10/09/22 11:26 TS [id number]) Subjective Physical Therapy Visit Type Type Treatment Note Visit Start Time 10:15 Visit Stop Time 10:40 Total Visit Minutes 25 Notes Vitals: Spo2 2L 92% at rest, 2L 83% after 15' ambulation, 3L at rest 94%, 3L after stairs 90%. Number of CLINICAL ACCOUNT LIAISON Visits 4 Physical Therapy Visit Comments Patient Comments Pt still reports SOB, reports he is ready to go home. Was issued a FWW yesterday and says he will use because he does not want to risk falling. Patient Goals Return home with HHPT. M4 PT-IP Mobility and Gait Start: 10/05/22 08:44 Freq: NEEDED Status: Active Protocol: Document 10/09/22 10:57 TS (Rec: 10/09/22 11:26 TS [id number]) PT-Transfer Assessment Sit to and From Stand Sit to and from Stand Standby Assistance Equipment Transfer Assistive Device None,Gait Belt,Front Wheeled Walker Comments Mobility Comments Pt found resting in chair, agreeable to PT session. 2L O2 92% at rest. Pt performed sit to stand x2 no AD and no UE support. He ambulated with FWW 15' to door and back to chair , impulsively ambulating quickly with NBOS and required cues for slower pace. Once back in chair O2 decreased to 83% on 2L, required cues for PLB and increase in O2 to 3L 94%. He perfomred sit to stand again with no AD and ambulated 4' to stair. He performed stairs x6 with RUE support on sink counter to replicate handrail at home, no LOB. Pt back to chair O2 90% on 3L. Pt was left in bedisde chair with call light and phone nearby, O2 decreased 2L. Gait Assessment Gait Gait Assistance Required: Standby Assistance Distance (Feet) 35 Assistive Devices Assistive Device Gait Belt,Front Wheeled Walker Gait Deviations General Gait Pattern Antalgic,Decreased Stride Length,Decreased Feet Clearance,Flexed Trunk,Narrow Based Gait Factors Limiting Gait Function Factors Limiting Gait Function Decreased Activity Tolerance, Poor Balance,Poor Safety Awareness,Respiratory Distress Comments Gait Comments Pt remains unsteady on feet dur to poor balance, weakness and SOB during ambulation. He is slightly impulsive with a fast gait requiring cues to slow down. Stair Climbing Assessment Evaluation Level of Assist On Stairs Standby Assistance Technique/Endurance Stair Climbing Direction Ascend and Descend Stair Climbing Technique Step to Step Number of Steps Climbed 6 Comments Stair Climbing Comments Pt demonstrated good balance with RUE on sink for ascending and descending stairs. No LOB or buckling of knees. PT-Balance Assessment Sitting Balance and Reactions Static Sitting Balance Ability Normal Dynamic Sitting Balance Ability Good Standing Balance and Reactions Static Standing Balance Ability Good Dynamic Standing Balance Ability Fair Comments Other Balance Tests/Deviations/Treatment Pt stood with no AD or UE : support this session. He maintained standing balance with no signs LOB or buckling, does slightly sway. M5 PT-IP Objective Assessments Start: 10/05/22 08:44 Freq: NEEDED Status: Active Protocol: Document 10/05/22 11:32 AW (Rec: 10/05/22 13:07 AW [id number]) Orientation Orientation/Cognition Level of Alertness Alert Orientation Name,Day of Week,Place, Situation Safety Awareness Decreased Safety Awareness Gross Range of Motion Upper Extremity ROM Assessment Within Functional Limits Lower Extremity ROM Assessment Within Functional Limits Strength Upper Extremity Strength Assessment Within Functional Limits Lower Extremity Strength Assessment Within Functional Limits Comments Strength Comments BLE grossly 5/5 on MMT but functionally requires CGA with positive episodes of RLE buckling. Sensation Assessment Sensation Gross Sensation WNL M6 PT-IP Treatment Start: 10/05/22 08:44 Freq: NEEDED Status: Active Protocol: Document 10/09/22 10:57 TS (Rec: 10/09/22 11:26 TS [id number]) Physical Therapy Treatment Education Education Provided Safety M7 PT-IP Assessment and Plan Start: 10/05/22 08:44 Freq: NEEDED Status: Active Protocol: Document 10/09/22 10:57 TS (Rec: 10/09/22 11:26 TS [id number]) PT Summary Assessment and Plan Potential Rehabilitation Potential Good Status of Condition at Evaluation Evolving Summary Impairments Pain,Strength,Balance, Transfers,Gait,Activity Tolerance Progress Towards Goals Slow Progress due to Activity Tolerance Assessment Summary Pt was SBA for sit to stand with use of no AD and UE support. His static standing balance is good with some slight swaying. He can be slightly impulsive with a speedy gait and requires cues to slow down. He performed stairs x6 with use of handrail assist, no signs of LOB or buckling of knees. PT continues to recommend home with HHPT for increasing activity tolerance and balance . His SOB during activity remains his biggest obstacle for improving his activity. Pt reports he has assist from son who works/lives at home with him and . Goals Bed Mobility Goal Independent Transfer Goal Independent,Front Wheeled Walker Gait Goal Independent,Front Wheel Walker Gait Distance 200 Other Goals - up/down 6 steps with L rail ascending SBA - improve gait and transfers to IND without AD Days to Meet Goals 5 Frequency of Treatment Frequency Of Treatment Once a Day Treatment Plan Physical Therapy Treatment Plan Bed Mobility Training,Transfer Training,Gait Training, Therapeutic Exercise,Balance Retraining,Discharge Planning, Hot or Cold Pack,Neuromuscular Re-ed Precautions Other Precautions O2 sats Recommendations To Nursing Amount of Assist Needed Standby Assistance Discharge Recommendations PT Discharge Recommendations Home with Assistance,Home Health Transportation Needs at Discharge Private Vehicle
--- NOTE | 2022-10-09 14:30 | OT.IPNOTE ---
Pt insistent on going home and not open to getting dressed or showering at this time. NO charge.
--- NOTE | 2022-10-09 14:34 | PM.DS.1 ---
History of Present Illness History of Present Illness Date Patient Seen: 10/09/22 Time Patient Seen: 14:35 Chief complaint: diff breathing Narrative: 77-year-old male with COPD, coronary artery disease status post drug-eluting stents, obstructive sleep apnea, CKD stage 3, hypertension, hyperlipidemia and known stable infrarenal abdominal aortic aneurysm presented to the emergency today with worsening shortness of breath and cough over the prior week. Initial O2 sats were noted to be in the 70s via EMS. Received a nebulizer in the ambulance on route to the hospital. He received an additional nebulizer treatment after arrival in the ER. Initial vital signs revealed a temp of 100.4?, heart rate in the 180s, respiratory rate in the 30s, BP 120/72, O2 sats 91% on 2 liters/minute. He received diltiazem 10 mg IV and subsequently was placed on a diltiazem infusion. Shortly thereafter though he converted back to a sinus rhythm. Labs revealed a white blood cell count of 16.4, hemoglobin 13.7, hematocrit 41.3, platelets 223. Chemistry panel revealed a sodium of 137, potassium 3.5, chloride 103, bicarb 19, BUN 22, creatinine 1.25, Cl 108. Lactate was initially 2.3 but in follow-up normalized at 1.8. Bilirubin was elevated at 1.9, AST 73, ALT 56, CK 200, CK-MB 2.95, troponin 0.057, BNP 4730. Procalcitonin was 6.41. Respiratory viral panel was done and human metapneumovirus was detected. Chest x-ray revealed right lower lobe infiltrate consistent with pneumonia. Patient received Levaquin 750 mg IV, Solu-Medrol 125 mg IV, as well as a single dose of Dilaudid 1 mg IV. After he converted back to a sinus rhythm, he was noted have a heart rate of 102-106, soft blood pressures at 87/57 to 96/71. While in the emergency department, blood pressures have gradually improved up to the low 100 systolic. Patient tells me he became ill approximately 1 week ago. Notes he was having cough productive of dark ?black? sputum. He had been feeling worse over the past couple of days. He states he delayed coming to the emergency department as his was worried about the cost. He states today he ?knew he was in trouble? and called EMS. He states he last ate food approximately 5 days ago. He notes he developed nausea but no vomiting. He would also had problems every time he ate he had diarrhea. He states his oral intake has been reduced and his urine output has been reduced as well. He states at baseline he does not use oxygen. He typically is able to get around as he needs to with some shortness of breath but it is not terribly limiting for him. He notes his longer drives and he drives her everywhere she needs to go and he is able to perform his IADLs. He states he was unaware he was febrile until coming to the emergency department. He also states he was unaware of having a fast heart rhythm. He states he simply knew he was feeling very poorly. He denies any chest pain. Currently he continues to have some shortness of breath. Discharge Providers Provider Date of admission: 10/04/22 15:47 Discharge Date: 10/09/22 Primary care physician: Jessica Canales PA-C Consults: 10/04/22 17:55 Consult to Discharge Planning Routine Comment: Consult to Occupational Therapy Evaluate & Treat Comment: Physician Instructions: Evaluate and treat Consult to Physical Therapy Evaluate & Treat Comment: Physician Instructions: Evaluate and Treat 10/08/22 11:10 Consult to Physical Therapy Evaluate & Treat Comment: FWW needed for home use Physician Instructions: Distribute FWW for home use Discharge provider: Isaak Crystal MD Summary Hospital Course Discharge Diagnosis: Acute hypoxic respiratory failure, present on admission and improved. Right lower lobe pneumonia, present on admission and improved. Metapneumovirus, present on admission and improved. COPD exacerbation, present on admission and improved. Chronic kidney disease stage 3, present on admission and stable. Hypertension, present on admission and stable. Obstructive sleep apnea, present on admission and stable. Hospital Course: Patient was admitted for acute COPD exacerbation. The patient was treated with standard therapy including empiric antibiotics, steroids and bronchodilators. The patient did improve with his oxygen demand and slowly weaned down to 2 L of oxygen. Definitely he did improve and had less wheezing. The patient is felt to be stable for discharge with home oxygen. He was evaluated and qualified for home oxygen on the day of discharge. The patient did have atrial fibrillation with rapid ventricular response while in the hospital and was rate controlled. This improved with his respiratory status improving. The patient started on Eliquis for atrial fibrillation which is new. It was unclear if the patient had been on dual antiplatelet therapy but will be on Plavix only at the time of discharge until review with his primary care provider. Status at Discharge Cognitive/behavioral status at discharge: oriented Functional status at discharge: independent ambulation Overall status at discharge: patient is back to baseline Time Spent with Patient Time spent: Greater than 30 minutes Exam Vital Signs (past 8 hours): - 10/09/22 07:55 10/09/22 08:00 10/09/22 07:00 Temperature 98 F Pulse Rate 77 Respiratory Rate 20 Blood Pressure 130/80 Pulse Oximetry 91 93 Oxygen Delivery Method Nasal Cannula Nasal Cannula Oxygen Flow Rate 2 2 Fraction of Inspired Oxygen 10/09/22 10:03 10/09/22 12:00 10/09/22 12:56 Temperature 97.8 F Pulse Rate 82 80 Respiratory Rate 24 19 Blood Pressure 128/70 Pulse Oximetry 90 L 98 97 Oxygen Delivery Method Nasal Cannula Room Air Oxygen Flow Rate 2 2 Fraction of Inspired Oxygen 28 Fraction of Inspired Oxygen 28 SaO2/FiO2 Ratio 321 Oxygen Delivery Method Room Air Oxygen Flow Rate 2 Narrative Exam Narrative: GEN: Elderly male, Alert and oriented x3. No distress. HEENT: Normocephalic, face symmetric NECK: Supple, no lymphadenopathy, thyroid without enlargement or nodularity, carotids no bruits CHEST: Diminished breath sounds, breath sounds improved with expiratory wheezes heard in all areas. Improved over yesterday's significant CV: Regular rhythm, no murmurs, rubs, gallops, PMI nondisplaced ABD: Soft, nontender, nondistended, bowel sounds present, no organomegaly or masses appreciated EXTR: Warm, well perfused, no clubbing/cyanosis/edema SKIN: Warm and dry, without rash NEURO: Alert and oriented x3, grossly intact PSYCH: Mood and affect is within normal limits, judgment and insight are appropriate, speech is normal. Objective Imaging Chest x-ray: Radiologist's impression: IMPRESSION:? COPD and bibasilar atelectasis.? No definite focal infiltrate.? No pleural effusion or pneumothorax. Echo: Radiologist's impression: The ejection fraction is estimated to be 50-55%. The left atrium is borderline dilated. 1.0x0.8cm globular mass is seen attached to the RA aspect f the IAS. The aortic valve is mildly calcified. There is no hemodynamically significant valvular aortic stenosis. There is an anterior echo-free space consistent with a fat pad. There is a trace loculated pericardial effusion. Labs 10/08/22 04:19 10/08/22 04:19 [facility] Medical History COPD (chronic obstructive pulmonary disease) Social History household members: spouse Smoking Status: Former smoker Discharge Assessment & Plan Assessment and Plan Assessment: 1. Acute hypoxic respiratory failure, improving ?-Plan to continue nebulizer treatments. 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 -continue steroids. 2. Right lower lobe pneumonia and positive metapneumovirus, improving Likely he had metapneumovirus initially and now has sustained a superimposed right lower lobe bacterial community-acquired pneumonia.? Procalcitonin is elevated, white blood cell count is also elevated and he has low-grade fevers. Continue Rocephin and azithromycin.? A 3-5 day course of antibiotics. 3. COPD exacerbation, present on admission and improved. -completed antibiotics and steroids. 4. Coronary artery disease, present on admission and stable. Patient has had drug-eluting stents in an NSTEMI as recently as December of 2021.? He does have a mildly elevated troponin at 0.057 on admission, which is likely demand ischemia related to initial elevated heart rates.? Repeat trop lowered to 0.026His initial EKG revealed AFib with RVR.? After converting to sinus rhythm follow-up EKG was obtained which revealed no ischemic changes.? This is certainly reassuring. Continue his usual outpatient medications.? It appears he takes ASA, Plavix, amlodipine, and losartan. He does not appear to be on a statin therapy.? Unclear why. Start lipitor 40mg daily with ASA and plavix. 5. CKD 3, present on admission and stable.? Creatinine on admission is 1.25.? GFR is 59.? Baseline creatinine is 1.3.? This appears to be baseline. 6. Hypertension, present on admission and stable. Typically on amlodipine and losartan on an outpatient basis.? These have been held secondary to some hypotension here. 7. Hyperlipidemia, present on admission and stable. Not presently on statin therapy.? Uncertain why.? This should be explored further as he is feeling better. 8. Reported obstructive sleep apnea, present on admission and stable. Not on CPAP/BiPAP.? Unclear how long ago this diagnosis was made. 9. Transaminitis, present on admission and active May be secondary to acute infection or hepatic congestion related to his AFib and decreased cardiac output versus his known hepatic steatosis.? Will follow.? 10. GERD, present on admission and stable. Does not appear to be on a PPI at baseline.? Will monitor for symptoms. 11. Infrarenal abdominal aortic aneurysm measuring 4.5 x 4.[address] in 2021, present on admission and stable. He is followed by vascular surgery and reports they have no plans for surgical intervention until the aneurism increases in size. 12. Glaucoma, present on admission and stable. Patient reports he uses latanoprost once daily but the other 2 glaucoma medications twice daily.? These will be ordered and confirmed. 13.? Paroxysmal AFib with RVR, present on admission and improved Patient reports no awareness of when he was in rapid AFib.? His CHADS2 Vasc score is 4, equivalent with a 4.8% stroke risk annually.? He would like to initiate anticoagulation.? Started Eliquis with metoprolol tart low dose 12.5mg BID. Code status Full per patient Plan of Treatment: Discharge home with close follow-up. Discharge Plan Discharge Plan Patient Disposition: Home Provider Discharge Comment: PCP within 1 week Discharge orders & Medications Prescriptions: New atorvastatin [Lipitor] 20 mg Tablet 40 mg PO BEDTIME Qty: 30 1RF Eliquis 5 mg Tablet 5 mg PO BID Qty: 60 1RF Continued losartan 50 mg Tablet 50 mg PO BID latanoprost 0.005 % Drops 1 drp OPHTHALMIC (EYE) QPM clopidogrel 75 mg Tablet 75 mg PO DAILY amlodipine 5 mg Tablet 5 mg PO BID brimonidine 0.2 % Drops 1 drp OPHTHALMIC (EYE) BID dorzolamide 2 % Drops 1 drp OPHTHALMIC (EYE) BID Combivent Respimat 20-100 mcg/actuation Mist 1 puff INHALATION TID Medication counseling provided by Pharmacist: No Follow up/Referrals: Jessica Canales PA-C [Primary Care Provider] - Discharge Health Status Multidrug resistant organism: No MDRO Diet/Activity/Treatments Diet: Diet as Tolerated Skin/Wound/Dressing Care Report to your healthcare provider any signs of infection, such as:: chills, fever, night sweats and increased pain Visit Report/Discharge Packet Instructions: Chronic Obstructive Pulmonary Disease Stand Alone Forms: Patient Portal/API Discharge Data Primary Care Provider: Jessica Canales
--- NOTE | 2022-10-09 14:54 | CM.DPNOTE ---
Called [facility] and spoke to Keyona who said they have accepted this patient and RN services will begin Wednesday, 10/12. Will send dc summary when completed. Nicole Dunn CM Assist.
== END 2022-10-09 16:25 | disposition home health service (06) | DRG 193 ==
LOC: ED 15:03 → AC 15:48 → ICU 16:48 → AC 10-05 16:05
PROVIDERS: Student in an Organized Health Care Education/Training Program; Admitting Provider Family Medicine; Emergency Provider Emergency Medicine; PCP Physician Assistant; Referring Provider Emergency Medicine; Visit Provider Family Medicine
DX: J12.3 Human metapneumovirus pneumonia (principal); J96.01 Acute respiratory failure with hypoxia; J44.1 Chronic obstructive pulmonary disease with (acute) exacerbation; I25.10 Atherosclerotic heart disease of native coronary artery without angina pectoris; H40.9 Unspecified glaucoma; I48.0 Paroxysmal atrial fibrillation; I12.9 Hypertensive chronic kidney disease with stage 1 through stage 4 chronic kidney disease, or unspecified chronic kidney disease; N18.30 Chronic kidney disease, stage 3 unspecified; I71.40 Abdominal aortic aneurysm, without rupture, unspecified; E78.5 Hyperlipidemia, unspecified; Z87.891 Personal history of nicotine dependence; Z20.822 Contact with and (suspected) exposure to COVID-19
CPT/HCPCS: 36415; 71045; 80048; 80053; 80061; 80076; 82550; 82553; 83036; 83605; 83690; 83735; 83880; 84145; 84484; 85007; 85025; 87040; 87633; 93005; 93010; 93306; 94618; 94640; 94760; 94762; 96365; 96366; 96367; 96368; 96375; 96376; 97116; 97162; 97166; 97530; 99285; 99291; J0696; J1956; J2920; J2930; J3475; J7613

== ENCOUNTER → 2023-04-07 15:13 | Outpatient (ROUT) | payer OTHER, MEDICARE, SELFPAY ==
[2022-10-04 15:54] VITALS: BMI 22.8
[2023-04-07 16:14] LABS: BUN Creatinine Ratio 21.1 (6-22); Blood Urea Nitrogen 24 mg/dL (9-20); Calcium 8.9 mg/dL (8.4-10.2); Carbon Dioxide 22 mmol/L (22-32); Chloride 103 mmol/L (98-107); Estimated Glomerular Filt Rate > 60 mL/min (>60); Glucose 140 mg/dL (80-110); HEMOLYSIS < 15 (0-50); Potassium 4.7 mmol/L (3.4-5.1); Sodium 137 mmol/L (137-145)
== END ==
PROVIDERS: PCP Physician Assistant; Visit Provider Family Medicine
DX: J44.9 Chronic obstructive pulmonary disease, unspecified (principal)
CPT/HCPCS: 80048